=== PATIENT | female | born 1950 | race American Indian/Alaskan Native ===

== ENCOUNTER 2017-01-14 17:51 | Emergency (ER) | payer MEDICARE, OTHER ==
[~2017-01-14] VITALS: Ht 154.9 cm; Wt 115.7 kg
[~2017-01-14 17:51] MED LIST: ARMOUR THYROID240 MG PO; FISH OIL 1,0001 EAC5 PO; LISINOPRIL20 MG PO; MEDROL4 M1 PO; TOPROL XL25 MG PO; TRIAMCINOLONE A15 G1; [UNRECOGNIZED DRUG - OTHER] TP
[2017-01-14] MEDS ORDERED: ZOFRAN ODT4 MG PO (21:08)
[2017-01-14] MEDS ORDERED: KEFLEX500 MG PO (21:08)
== END 2017-01-14 22:12 | disposition home or self-care (01) ==
LOC: ED 17:51
DX: K80.20 Calculus of gallbladder without cholecystitis without obstruction (principal); N39.0 Urinary tract infection, site not specified; I10 Essential (primary) hypertension; E11.9 Type 2 diabetes mellitus without complications; E03.9 Hypothyroidism, unspecified; F17.200 Nicotine dependence, unspecified, uncomplicated; K76.0 Fatty (change of) liver, not elsewhere classified
CPT/HCPCS: 76705; 80053; 81001; 83690; 85025; 96361; 96374; 96375; 96376; 99284; J0696; J1170; J2405; J2550; J7030

== ENCOUNTER 2018-02-25 10:55 | Emergency (ER) | payer MEDICARE, OTHER ==
[~2018-02-25] VITALS: Ht 154.9 cm; Wt 115.7 kg
--- OUTSIDE RECORDS SUMMARY | ~2018-02-25 | XMS | Clinical Summary ---
Demographics + + + | Address | [address] | | | [place] [address] | + + + | Home Phone | | + + + | Preferred Language | Unknown | + + + | Marital Status | Single | + + + | Gnosticist Affiliation | CAT | + + + | Race | or | + + + | Ethnic Group | Not or | + + + Author + + + | Author | [facility] | + + + | Organization | [facility] | + + + | Address | Unknown | + + + | Phone | Unavailable | + + + Support + + +---------+ + | Name | Relationship | Address | Phone | + + +---------+ + | Brittney Miller | ECON | Unknown | | + + +---------+ + | Mohini Penn | ECON | Unknown | | + + +---------+ + | SCAR MILLER | ECON | Unknown | | + + +---------+ + | Daniel Miller | ECON | Unknown | | + + +---------+ + Care Team Providers + +------+ + | Care Cardiographer Name | Role | Phone | + +------+ + | No Pcp Per Patient | PP | Unavailable | + +------+ + Source Comments [facility] is fully live on both [facility] and [facility]Patient.[facility] Allergies No Known Allergies Current Medications + + +---------+---------+------+------+-------+ | Prescription | Sig. | Disp. | Refills | Star | End | Statu | | | | | | t | Date | s | | | | | | Date | | | + + +---------+---------+------+------+-------+ | levothyroxine 75 | Take 75 mcg by mouth | | | | | Activ | | mcg oral tablet | before breakfast. | | | | | e | + + +---------+---------+------+------+-------+ | glipiZIDE ER 10 mg | Take 10 mg by mouth | | | | | Activ | | oral tablet | once daily. | | | | | e | | extended release | | | | | | | | 24hr | | | | | | | + + +---------+---------+------+------+-------+ | acetaminophen 500 | Take 2 tablets by | | | 06/0 | | Activ | | mg oral tablet | mouth every eight | | | 7/20 | | e | | | hours. | | | 17 | | | + + +---------+---------+------+------+-------+ | lidocaine 5 % | Apply 1 patch to | 10 | 1 | 06/0 | | Activ | | topical adhesive | skin every | patch | | 12/22 | | e | | patch,medicated | twenty-four hours. | | | 17 | | | | | Apply patch to most | | | | | | | | painful area; Patch | | | | | | | | may remain in place | | | | | | | | for up to 12 hours | | | | | | | | in any 24-hour | | | | | | | | period. | | | | | | + + +---------+---------+------+------+-------+ | senna 8.6 mg oral | Take 2 tablets by | | | 06/0 | | Activ | | tablet | mouth two times | | | 7/20 | | e | | | daily. | | | 17 | | | + + +---------+---------+------+------+-------+ | polyethylene | Mix 1 packet and | | | 06/0 | | Activ | | glycol 17 gram oral | take orally once | | | 8/20 | | e | | powder in packet | daily. | | | 17 | | | + + +---------+---------+------+------+-------+ | cholecalciferol | Take 1 capsule by | 7 | 0 | 06/0 | | Activ | | 50,000 unit oral | mouth every seven | capsule | | 8/20 | | e | | capsule | days. | | | 17 | | | + + +---------+---------+------+------+-------+ | oxyCODONE | Take 1-2 tablets by | 40 | 0 | 07/1 | | Activ | | (immediate release) | mouth every eight | tablet | | 2/20 | | e | | 5 mg oral tablet | hours as needed for | | | 17 | | | | | moderate pain or | | | | | | | | severe pain. 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 | | + + + Social History + +-------+ +--------+------+ | Tobacco Use | Types | Packs/Day | Years | Date | | | | | Used | | + +-------+ +--------+------+ | Current Some Day | | | | | | Smoker | | | | | + +-------+ +--------+------+ + + + | Sex Assigned at | Date Recorded | | | | + + + | Not on file | | + + + Last Filed Vital Signs + + + + | Vital Sign | Reading | Time Taken | + + + + | Blood Pressure | 151/52 | 12/14/2016 1:31 PM PDT | + + + + | Pulse | 86 | 12/14/2016 1:31 PM PDT | + + + + | Temperature | 36.8 C (98.3 F) | 12/14/2016 1:31 PM PDT | + + + + | Respiratory Rate | 16 | 11/10/2016 8:04 AM PDT | + + + + | Oxygen Saturation | 97% | 11/10/2016 12:01 PM PDT | + + + + | Inhaled Oxygen | - | - | | Concentration | | | + + + + | Weight | 112 kg (246 lb 14.4 | 12/14/2016 1:31 PM PDT | | | oz) | | + + + + | Height | 154.9 cm (5' 1") | 12/14/2016 1:31 PM PDT | + + + + | Body Mass Index | 46.65 | 12/14/2016 1:31 PM PDT | + + + + Plan of Treatment + + + + + | Health Maintenance | Due Date | Last Done | Comments | + + + + + | Pneumococcal (Adult) | | | | | (1 of 2 - PCV13) | 4 | | | + + + + + | INFLUENZA VACCINE | | | | | (FLU SHOT) | 8 | | | + + + + + Results Not on filefrom Last 3 Months Insurance + +--------+ +--------+ + + | Payer | Benefi | Subscriber | Type | Phone | Address | | | t Plan | ID | | | | | | / | | | | | | | Group | | | | | + +--------+ +--------+ + + | MEDICARE | MEDICA | xxxxxxxxxx | Medica | +- | [address] | | | RE A & | | re | [phone] | [place] [address] | | | B | | | | | + +--------+ +--------+ + + | | TRICAR | xxxxxxxxx | Indemn | +- | | | | E 4 | | ity | [phone] | | | | LIFE | | | | | + +--------+ +--------+ + + | [place] | MCAID | xxxxxxxx | Medica | [phone] [address] [phone] | | | QMM | | id | [phone] | [place] [address] | | | QMB | | | | | + +--------+ +--------+ + + | [employer] [place] [facility] | [employer] | xxxxxxxxx | Agency | | | | SERVICE | | | | | | | | HEALTH | | | | | | | | | | | | | | SERVIC | | | | | | | E | | | | | + +--------+ +--------+ + + + +--------+ +--------+ + + | Guarantor Name | Accoun | Relation to | Date | Phone | Billing Address | | | t Type | Patient | of | | | | | | | | | | + +--------+ +--------+ + + | ALFREDO BUTLER | Person | Self [birth year] | Home: | [address] | | | al/Fam | | 1950 | +- | [place] [address] | | | [place]izett | | | [phone] | | + +--------+ +--------+ + + | ALFREDO BUTLER | Third | Self | [birth year] | Home: | [address] | | | [employer] [place] | | 1950 | +- | [place] [address] | | | [place] | | | 0 | | | | ity | | | | | + +--------+ +--------+ + +
--- OUTSIDE RECORDS SUMMARY | ~2018-02-25 | XMS | Clinical Summary ---
Demographics + + + | Address | [address] | | | [place] [address] | + + + | Home Phone | | + + + | Preferred Language | Unknown | + + + | Marital Status | Single | + + + | Islam Affiliation | CAT | + + + [...] Team Providers + +------+ + | Care Senior Java Software Engineer Name | Role | Phone | + +------+ + | No Pcp Per Patient | PP | Unavailable | + +------+ + Source Comments [facility] is fully live on both [facility] Amb[facility] and [facility] InPatient.[facility] Allergies No Known Allergies Current Medications + [...] | re | [phone] | [place] [address] | | | B | | | | | + +--------+ +--------+ + + | | TRICAR | xxxxxxxxx | Indemn | +- | | | | E 4 | | ity | [phone] | | | | LIFE | | | | | + +--------+ +--------+ + + | [place] | MCAID | xxxxxxxx | Medica | [phone] [address] [phone] | | | QMM | | id | [phone] | [place] [address] | | | QMB | | | | | + +--------+ +--------+ + + | [employer] [facility] | [place] | xxxxxxxxx | Agency | | | [...] | 1950 | +- | [place] [address] | | | [place] | | | [address] | | + +--------+ +--------+ + + | ALFREDO BUTLER | Third | Self | [birth year] | Home: | [address] | | | Libertarian | | 1950 | +- | [place] [address] | | | [place] | | | 0 | | | | ity | | | | | + +--------+ +--------+ + +
[~2018-02-25 10:55] MED LIST changes: +KEFLEX500 MG PO; +ZOFRAN ODT4 MG PO
== END 2018-02-25 11:17 | disposition home or self-care (01) ==
LOC: ED 10:55
DX: Z00.8 Encounter for other general examination (principal)

== ENCOUNTER 2018-03-02 07:25 | Inpatient (IN) | payer MEDICARE, OTHER ==
[~2018-03-02] VITALS: Ht 154.9 cm; Wt 93.0 kg
--- OUTSIDE RECORDS SUMMARY | ~2018-03-02 | XMS | Clinical Summary ---
Demographics + + + | Address | [address] | | | [place] [address] | + + + | Home Phone | | + + + | Preferred Language | Unknown | + + + | Marital Status | Single | + + + | Anabaptism Affiliation | CAT | + + + [...] Team Providers + +------+ + | Care Assistant Office Manager Name | Role | Phone | + +------+ + | No Pcp Per Patient | PP | Unavailable | + +------+ + Source Comments [facility] is fully live on both [facility] and [facility] InPatient.[facility] Allergies No Known Allergies Current Medications + [...] | re | [address] | [place] [address] | | | B | | | | | + +--------+ +--------+ + + | | TRICAR | xxxxxxxxx | Indemn | +- | | | | E 4 | | ity | [phone] | | | | LIFE | | | | | + +--------+ +--------+ + + | [employer] | MCAID | xxxxxxxx | Medica | [phone] | [address] [phone] | | | QMM | | id | [phone] | [place] [address] | | | QMB | | | | | + +--------+ +--------+ + + | [employer] | [employer] | xxxxxxxxx | Agency | | | [...] | 1950 | +- | [place] [address] | | | [place] | | | [address] | | + +--------+ +--------+ + + | ALFREDO BUTLER | Third | Self | [birth year] | Home: | [address] | | | Libertarian | | 1950 | +- | [place] [address] | | | [place] | | | 0 | | | | ity | | | | | + +--------+ +--------+ + +
--- NOTE | 2018-03-02 10:41 | NUR ---
03/02/18 1041 Imelda Pimentel 1027- PT TO PACU ALERT AND ORIENTED REPORTS NO PAIN OR NAUSEA. EDUCATED PT TO NOTIFY THIS RN IF SHE BECOMES PAINFUL. PT STATES UNDERSTANDING. 1030- BS TAKEN BY KT MONTELONGO. BS 374. 1032- PT DRINKING WATER PER REQUEST. TOLERATING WELL.
--- NOTE | 2018-03-02 11:15 | NUR ---
PATIENT TO ROOM FROM PACU. VITALS TAKEN. PATIENT ABLE TO MOVE SELF OVER TO BED. PATIENT CURRENTLY RATES PAIN 0/10. BLOCK IN PLACE. REPORT GIVEN FROM MONICA PROPERTY DISPOSAL OFFICER. ORDERED LUNCH. BS TAKEN. FAMILY AT BEDSIDE.
--- NOTE | 2018-03-02 13:23 | NUR ---
PT RESTING COMFORTABLY IN BED, RESPIRATIONS EVEN AND UNLABORED, NO ACUTE DISTRESS NOTED. NO ACUTE CHANGES.
--- NOTE | 2018-03-02 13:38 | OR ---
[facility] [address] [place], [place] [address] Signed DATE OF OPERATION: 03/02/2018 SURGEON: Jeanna Simpson MD HISTORY OF PRESENT ILLNESS: Makenzie is a 68-year-old obese diabetic female, who had presented with a month of right perianal pain with swelling and erythema, and eventually some drainage. She had initially gone to the [facility] and had an incision and drainage performed and was given clindamycin 300 mg p.o. t.i.d.; unfortunately, she only took it once a day. In the meantime, she followed up with her primary care provider. Apparently things were no better. Her primary care provider had called my office and we had seen her urgently yesterday evening. Makenzie told me that she is noncompliant and has not taken any medications in over a year including her diabetic medication and her thyroid medication, cholesterol and high blood pressure medication. On exam in the office, she had a large abscess on the right gluteus over the area of the ischium and it was every bit a 10 cm in diameter. The overlying skin was breaking down and she was having some pus come through. I explained to Makenzie we would take her to the operating room the following morning and we are going to keep her in the hospital at least a few days to get some of her medical issues ironed out and her blood sugars under better control, and we would use a full strength Dakin's packing in the wound to help kill the bacteria locally along with her IV antibiotics. Once we felt she was on an improved course, we would discharge her to home, hopefully just a few days. She understands that wound is going to be left open, it will heal in secondarily over a month or two. She understands the nature of the surgery along with its risks including, but not limited to bleeding, infection, scarring, change in contour of the skin, and recurrent abscesses in the same or other locations. She had expressed understanding and wished to proceed. PROCEDURE NOTE: I met with Makenzie in our preop area. After this, our nurse contact clerk gave her a saddle block. She was taken in the operating room and placed in the prone jackknife position with appropriate padding and monitoring. She was given Versed IV just for comfort during the procedure. She was given her preoperative antibiotics and later given the subcutaneous heparin. SCDs were utilized. She was prepped and draped in the usual sterile fashion. We did a digital rectal exam and I cannot associate the abscess with the anal canal. It looks like this is over the ischium and therefore, it is a gluteal abscess. We simply opened the skin over about 2 cm and evacuated the pus in the loose areolar tissue, surrounding that was healthier adipose tissue. The abscess had headed inferiorly towards the inner thigh in laterally and just a little bit very short, maybe 1 cm or so toward the anus and stopped. All those areas were opened. All the tissue was cleaned out sharply and with the Peon clamps. The wound was then Electronically Signed By: JEANNA SIMPSON MD 03/02/18 1338 PATIENT NAME: MAKENZIE WILBURN OPERATIVE REPORT DATE OF : 48 REPORT #: [id number] PHYSICIAN: JEANNA SIMPSON MD PCP: IAIN ARGUELLO REPORT IS CONFIDENTIAL AND NOT TO BE RELEASED WITHOUT AUTHORIZATION [address] [address] Signed copiously irrigated and suctioned out until clear. Cultures had already been taken in the emergency room and we will track those down. We injected local anesthetic in the wound and underneath the skin, and we packed the wound with full strength Dakin-soaked 4-inch Kerlix gauze roll. A dry ABD was placed over this along with underwear. No tape was applied to that skin. She was then rotated into the supine position onto her hospital bed and taken into recovery room in stable condition. Makenzie tolerated the procedure quite well. Jeanna Simpson MD ALB/MODL /[id number] cc: Imelda Bond Copies: IMELDA BOND ~ Electronically Signed By: JEANNA SIMPSON MD 03/02/18 1338 PATIENT NAME: MAKENZIE WILBURN OPERATIVE REPORT DATE OF : 48 REPORT #: [id number] PHYSICIAN: JEANNA SIMPSON MD PCP: IAIN ARGUELLO REPORT IS CONFIDENTIAL AND NOT TO BE RELEASED WITHOUT AUTHORIZATION
--- NOTE | 2018-03-02 13:57 | NUR ---
PATIENT RESTING IN BED. RN IN ROOM. VITALS AND I&O DONE. ICE WATER GIVEN. CALL LIGHT WITHIN REACH. NO OTHER NEEDS AT THIS TIME.
--- NOTE | 2018-03-02 13:57 | NUR ---
PT SBA TO BSC, STEADY GAIT, NO DIZZINESS. PT ASSISTED BACK TO BED AND ASSESSED FOR PAIN, POSITIONING, AND POSSIBLE DRESSING CHANGE. PT STATES SHE HAS PAIN 6/10 TO RLE, 5/325MG HYDROCODONE GIVEN. DRESSING CHANGES TO BE COMPLETED. PT REMAINS ON LEFT SIDE UNTIL DRESSING CHANGE COMPLETED.
--- NOTE | 2018-03-02 14:00 | NUR ---
PT ASSISTED TO LEFT LATERAL POSITION, ASSESSED FOR COMFORT AND PAIN, 1MG DILAUDID GIVEN PRIOR TO DRESSING CHANGE FOR 6/10 PAIN. MODERATE AMOUNT OF SEROSANGUINOUS DRAINAGE NOTED ON DRESSING. SITE CLEANSED WITH SOAP AND WATER. KERLIX GAUZE ROLL SOAKED IN DAKINS SOLUTION PACKED INTO WOUND SITE. BACTROBAN OINTMENT APPILED TO SURROUNDING AREA. ABD APPLIED. MESH UNDERWEAR IN PLACE. PT TOLERATED WELL. ASSESSED FOR PAIN AND POSITIONING. DENIES OTHER NEEDS. CALL LIGHT WITHIN REACH.
--- NOTE | 2018-03-02 15:56 | NUR ---
PT CONTINUES TO HAVE MILD NAUSEA AFTER 4MG ZOFRAN, ADDITIONAL 4MG ZOFRAN GIVEN FOR TOTAL DOSE OF 8MG. PT REPORTS IMPROVEMENT OF SYMPTOMS. WILL CONTINUE TO MONITOR. DENIES OTHER NEEDS. CALL LIGHT WITHIN REACH .
--- NOTE | 2018-03-02 16:50 | NUR ---
CALL LIGHT ANSWERED. PT REPORTS INCREASED NAUSEA, 100ML EMESIS NOTED. 12.5MG PHENAGREN GIVEN. CONTINUOUS PULSE OX IN PLACE, 95% ON RA. VITAL SIGNS OBTAINED AND WNL. WILL CONTINUE TO MONTIOR.
--- NOTE | 2018-03-02 17:30 | NUR ---
PT RESTING COMFORTABLY IN BED, RESPIRATIONS EVEN AND UNLABORED, OXYGEN SATURATION 94% ON RA. NO ACUTE DISTRESS NOTED.
--- NOTE | 2018-03-02 18:22 | NUR ---
PT HAD I&D OF RIGHT GLUTEAL ABCESS TODAY. OVERALL PAIN HAS BEEN WELL MANAGED, SINGLE DOSE OF 5/325MG HYDROCODONE GIVEN, 1MG DILAUDID GIVEN PRIOR TO DRESSING CHANGE. DRESSING CHANGED PERFORMED, SITE PACKED WITH KERLIX SOAKED DAKINS, BACTROBAN APPLIED AROUND SITE, ABD PAD PLACED, MESH UNDERWEAR, PT TOLERATED WELL. INCREASED NAUSEA WITH EMESIS, 8 MG ZOFRAN AND 12.5 PHENAGREN GIVEN. PT SBA TO BSC, VOIDING QS, PT DUE TO HAVE BM. SCHEDULED CEFEPIME AND FLAGYL.
--- NOTE | 2018-03-02 20:00 | NUR ---
RECEIVED REPORT AT 1900, FOUND PT IN BED SLEEPING. NO NEW CONCERNS AT THIS TIME.
--- NOTE | 2018-03-02 21:25 | NUR ---
VITALS AND I&OS DONE AND CHARTED. HELPED PT TO THE BSC AND BACK TO BED. FRESH ICE WATER GIVEN. HEATED UP HER DINNER AGAIN. SCD'S PLUGGED BACK IN. PT WILL CALL IF SHE NEEDS ANYTHING ELSE.
--- NOTE | 2018-03-02 21:37 | NUR ---
charge nurse rounding note: Resting eyes closed, call lihgt and fluids at bedside
--- NOTE | 2018-03-02 22:00 | NUR ---
V/S ARE WDL. LOBES ARE CLEAR. ABD SOUNDS ARE PRESENT. DRESSING CHANGE TO BED DONE IN A BIT DUE TO FAMILY IN THE ROOM. BS WAS 298, MEDS GIVEN. PT SO FAR DENIES N/V BUT NEEDED SOME PRN DILAUDED FOR PAIN. WILL CONTINUE TO MONITOR.
--- NOTE | 2018-03-03 | NUR ---
PT IS SLEEPING BUT WILL WAKE HER UP FOR DRESSING CHANGE.
--- NOTE | 2018-03-03 00:53 | NUR ---
DRESSING CHANGE DONE AT 0030. 1MG IV DILAUDED GIVEN PRIOR TO DRESSING CHANGE. PT HAD ALSO NAUSEA, 8MG IV ZOFRAN WAS GIVEN WELL. NO NEW CONCERNS AT THIS TIME.
--- NOTE | 2018-03-03 02:05 | NUR ---
PT IS AWAKE IN BED. PT STILL HAS NAUSEA, PHENERGAN TO BE GIVEN PER ORDER. PAIN NOW IS 3/10. WILL CONTINUE TO MONITOR.
--- NOTE | 2018-03-03 04:00 | NUR ---
PT IS SLEEPING AT THIS TIME.
--- NOTE | 2018-03-03 05:27 | NUR ---
PAIN OVERALL HAS BEEN CONTROLLED WITH PRN DILAUDED. NAUSEA HAS REMAINED AN ISSUE THIS SHIFT. ZOFRAN DID NOT HELP AND THEREFORE PHENERGAN WAS GIVEN. PT IS ABLE TO TOLERATE CLEARS SO FAR. DRESSING CHANGE WAS DONE. ALL LOBES ARE CLEAR, ABD SOUNDS ARE PRESENT. WILL CONTINUE TO MONITOR.
--- NOTE | 2018-03-03 07:20 | NUR ---
REPORT RC'D FROM PARTITION MAKING MACHINE OPERATOR NURSE ALLIE. REPORTS PAIN WELL MANAGED, NO NAUSEA OR EMESIS, DRESSING CHANGE COMPLETED. PT RESTING IN BED WITH EYES CLOSED, RESPIRATIONS EVEN AND UNLABORED, NO ACUTE DISTRESS NOTED.
--- NOTE | 2018-03-03 08:17 | NUR ---
patient in bed, blood sugar already taken, breakfast brought in
--- NOTE | 2018-03-03 09:30 | NUR ---
PT RESTING IN BED, EASILY AWAKENED TO VERBAL STIMULI. PT A&O X3, VERBALIZATIONS CLEARS, RESPONDS APPROPRIATELY, PERRLA. RHYTHM REGULAR, R D ENGINEER LESS THAN 3 SECONDS, TRACE EDEMA NOTED TO BLE, SCD IN PLACE, DENIES N/T. RESPIRATIONS EVEN AND UNLABORED, LUNGS CLEAR THROUGHOUT ALL DOWNING BILATERALLY, NO COUGH. ABD SOFT NON TENDER, DUE FOR BM, TOLERATING ADA DIET, DENIES N/V, BOWEL TONES ACTIVE X4. VOIDING QS. INTEGUMENTARY WARM, DRY, AND INTACT. LR INFUSING AT 75 ML/HR, SCHEDULED ABX. DR. SIMPSON AT BEDSIDE TO ASSESS PT. PACKING REMOVED. PT TO HAVE SHOWER AND DRESSING CHANGE TO BE COMPETED. DR. SIMPSON REPORTS WOUND CARE EDUCATION TO BE PROVIDED TO REPROGRAPHICS TECHNICIAN.
--- NOTE | 2018-03-03 10:30 | NUR ---
PT BACK TO BED AFTER SHOWER, TOLERATED WELL. PT GIVEN 5/325MG HYDROCODONE PRIOR TO DRESSING CHANGE. SMALL AMOUNT OF SEROSANGENUOUS DRAINAGE NOTED, REDNESS AROUND I&D SITE AND RECTUM, NO WARMTH NOTED. KIRLEX SOAKED IN DAKINS PACKED INTO SITE, BACTROBAN APPLIED TO SURROUNDING AREA, ABD PLACED, MESH UNDERWEAR APPLIED, PT TOLERATED WELL. ASSESSED FOR POSITIONING AND PAIN. PAIN 2/10, DENIES NEED FOR PRN PAIN MEDICATION. CALL LIGHT WITHIN REACH. FLAGYL AND CEFEPIME RESTARTED AT THIS TIME.
--- NOTE | 2018-03-03 11:40 | NUR ---
patient sahowwered, blood sugar taken and lunch delivered
--- NOTE | 2018-03-03 12:00 | NUR ---
PT RESTING COMFORTABLY IN BED WITH EYES CLOSED, RESPIRATIONS EVEN AND UNLABORED, NO ACUTE DISTRESS NOTED. NO ACUTE CHANGES.
--- NOTE | 2018-03-03 13:30 | NUR ---
PT RESTING COMFORTABLY IN BED. PT ASSITED TO REPOSITION AT THIS TIME. DRESSING C/D/I. PT REQUESTING PRN PAIN MEDICATION, 5/325MG NORCO GIVEN. DENIES OTHER NEEDS AT THIS TIME.
--- NOTE | 2018-03-03 15:00 | NUR ---
PT ASSISTED BACK TO BED FROM RESTROOM WITH FWW, NEW ABD PAD AND MESH UNDERWEAR APPLIED. PT'S DAUGHTER AT BEDSIDE. DISCUSSED DAUGHTER'S WILLINGNESS TO ASSIST WITH WOUND CARE, PT'S DAUGHTER STATES SHE IS STARTING A NEW JOB AND WILL BE TRAVELING OUT OF TOWN FOR TRAINING. PT'S DAUGHTER STATES SHE DOES NOT BELEIVE ANY FAMILY MEMBERS WILL BE ABLE TO PERFORM WOUND CARE. THIS RN THEN DISCUSSED POSSIBLE REFERRAL TO [facility] FOR WOUND CARE MANAGMENT AND MEDICATION DELIVERY WITH [facility] NURSE. PT AND PT'S DAUGHTER AGREEABLE TO REFERRAL. WILL DISCUSS WITH DR. SIMPSON.
--- NOTE | 2018-03-03 16:30 | NUR ---
PT AMBULATED HALLWAY WITH FWW, GAIT STEADY, TOLERATED WELL. PT ASSISTED BACK TO BED. PT REQUESTING PRN ZOFRAN FOR INCREASED NAUSEA, 8MG ZOFRAN GIVEN. PT REQUESTING TO REST AT THIS TIME. CALL LIGHT WITHIN REACH.
--- NOTE | 2018-03-03 18:27 | NUR ---
pateint in bed, she is resting,needed no other assistance at this time
--- NOTE | 2018-03-03 18:27 | NUR ---
PT'S PAIN WELL MANAGED THROUGHOUT DAY. NO NAUSEA REPORTED UNTIL THIS EVENING, 8MG ZOFRAN GIVEN. PER DR. SIMPSON, EDUCATION ON WOUND CARE TO BE GIVEN TO PT'S FAMILY MEMBER/GROUND SCHOOL INSTRUCTOR. DISCUSSED WOUND CARE WITH FAMILY MEMBER, FAMILY MEMBER NOT WILLING TO PERFORM WOUND CARE. DISCUSSED POSSIBLE REFERRAL TO [facility] NURSES TO PERFORM WOUND CARE AND MEDICATION DELIVERY, PT AGREEABLE TO REFERRAL. PT AMBULATED HALLWAY TODAY, SBA WITH FWW, TOELRATED WELL, CONTINUE TO ENCOURGE. DRESSING CHANGE BID. PT HAD BM X2. SCHEDULED CEFEPIME AND FLAGYL CONTINUES.
--- NOTE | 2018-03-03 20:15 | NUR ---
PT RESTING IN BED, ASSESSMENT COMPLETED, DRESSING CHANGED PER ORDER. CALL LIGHT AND H20 IN REACH. NORCO 5/325 MG X2 TABS WAS ADMINISTERED PER PT REPORT OF 4/10 PAIN PRIOR TO DSG CHANGE. BED ALARM ON NAD NO FURHTER CONCERNS OR REQUESTS VOICED.
--- NOTE | 2018-03-03 20:49 | NUR ---
pt resting in bed safely. pt has no needs at this time. call light within reach.
--- NOTE | 2018-03-03 22:18 | NUR ---
PT RESTING ON LEFT LATERAL SIDE IN BED, PT ASSISTED TO RESTROOM PER HER REQUEST. IV ABX INFUSING. PT DENIES PAIN CALL LIGHT AND H20 IN REACH.
--- NOTE | 2018-03-03 22:40 | NUR ---
charge nurse rounding note: dressing change to perianal area done by primary rn. pt turns self in bed, no requests, call light and fluids at requests
--- NOTE | 2018-03-04 00:24 | NUR ---
PT RESTING SUPINE IN BED, RESPIRATIONS ARE EVEN AND UNLABORED. EYES CLOSED AND PT APPEARS TO BE SLEEPING COMFORTABLY. CALL LIGHT AND H20 IN REACH.
--- NOTE | 2018-03-04 02:55 | NUR ---
PT RESTING SUPINE IN BED, EYES CLOSED AND RESPIRATIONS EVEN AND UNLABORED. PT ASSESSMENT COMPLETED. CALL LIGHT AND H20 IN REACH. PT ASSISTED TO RESTROOM WITH 1PA. IV ABX NFUSING. PT ASSISTED BACK TO BED AND NO FURHTER CONCERNS OR REQUESTS VOICED.
--- NOTE | 2018-03-04 06:45 | NUR ---
Pt up to brp, voided. Requested to go for a walk, walked down towards ICU and up towards 120 and back to room, tolerated well, back to bed, required one person assist and fww.
--- NOTE | 2018-03-04 07:06 | NUR ---
PT APPEARED TO HAVE SLEPT COMFORTABLY THROUGH THE NIGHT. PT A/O X4, ON ROOM AIR. PT TO AMBULATE QID. TOLORATED AMBULATING THIS MORNING WELL. DSG CHANGE ORDERED TO COCCYX BID. PT DID NOT REPORT ANY NAUSEA THROUGH THE NIGHT AND PAIN WAS WELL MANAGED WITH PO NORCO. PT NEEDS ORDER FOR WOUND CARE AND PLANS TO RECEIVE WOUND CARE THROUGH [facility] NURSE UPON DISCHARGE. PT RECEIVEING IV ABX. PT'S VS'S HAVE BEEN STABLE, QS URINE OUTPUT.
--- NOTE | 2018-03-04 07:20 | NUR ---
REPORT RC'D FROM ANTIQUE FURNITURE RESTORER NURSE NESTOR. PT RESTING IN BED WITH EYES CLOSED, RESPIRATIONS EVEN AND UNLABORED, NO ACUTE DISTRESS NOTED.
--- NOTE | 2018-03-04 07:44 | NUR ---
pateint in bed, blood sugar already done, breakfast brought in, she wasnt ready to wake up yet, she is currently resting for a bit
--- NOTE | 2018-03-04 09:00 | NUR ---
FULL ASSESSMENT TO BE COMPLETED, SEE DOCUMENTATION. PT RESTING IN BED AT THIS TIME. PRN NORCO TO BE GIVEN PRIOR TO DRESSING CHANGE. DR. SIMPSON AT BEDSIDE ASSESSING PT AND UPDATING PLAN OF CARE.
--- NOTE | 2018-03-04 10:00 | NUR ---
DRESSING CHANGE COMPLETED. SMALL AMOUNT OF SERSANGENOUS DRAINAGE NOTED, REDNESS IMPROVING AROUND WOUND SITE, NO WARMTH NOTED, SITE PACKED WITH DAKIN SOAKED KERLIX, BACTROBAN APPILED TO SURROUNDING AREA, ABD PAD AND MESH UNDERWEAR IN PLACE, PT TOLERATED WELL. PT STATES INCREASED SENSE OF SENSATION TO AREA. PT HAVE TO HAVE WOUND CONSULT WITH [facility] FOR HOME MANAGEMENT, CONSULT CREATED. DENIES OTHER NEEDS. PT TO AMBULATE LATER THIS AFTERNOON.
--- NOTE | 2018-03-04 10:29 | NUR ---
PT RESTING IN BED AT THIS TIME REQUESTING SF VIJAYO PROVIDED. PT STATES PAIN IMPROVING AFTER DRESSING CHANGE AND ICE APPLICATION. WILL CONTINUE TO MONITOR. DENIES OTHER NEEDS AT THIS TIME. CALL LIGHT WITHIN REACH.
--- NOTE | 2018-03-04 12:00 | NUR ---
PT BACK IN BED AFTER AMBULATING HALLWAY WITH FWW. PT REPORTS MILD CRAMPING IN FEET THAT IMPROVES WITH REST. DENIES OTHER NEEDS. CALL LIGHT WITHIN REACH.
--- NOTE | 2018-03-04 13:11 | NUR ---
PT A&O X3 AND RESPONDING APPROPRIATELY. RHYTHM REGULAR, MUFFLER TENDER LESS THAN 3 SECS, PERIPHERAL PULSES +2 IN UPPER AND LOWER BILATERALLY, SCD IN PLACE, DENIES N/T, TRACE EDEMA IN BLE. RESPIRATIONS EVEN AND UNLABORED, LUNGS CLEAR THORUGHOUT ALL DOWNING BILATERALLY, ON RA, NO COUGH. BOWEL TONES ACTIVE X4, BM YESTERDAY, DENIES NAUSEA, TOLERATING ADA DIET. VOIDING QS. DRESSING CHANGE TO BE COMPLETED. IV SITE FLUSHED, PATENT, WNL.
--- NOTE | 2018-03-04 14:00 | NUR ---
PT REPORTS AMBULATING HALLWAY WITH BOOSTER ASSEMBLER, TOELRATED WELL. PT VISITING WITH FAMILY MEMBER. DRESSING ASSESSED, ABD NOTED TO HAVE SMALL AMOUNT OF SEROSANGENUOUS FLUID, ABD REPLACED. DENIES OTHER NEEDS. CALL LIGHT WITH REACH.
--- NOTE | 2018-03-04 14:39 | NUR ---
pateint in room visiting with friend will go back to do vital signs
--- NOTE | 2018-03-04 16:30 | NUR ---
PT RESTING IN BED WITH EYES CLOSED, RESPIRATION EVEN AND UNLABORED. NO ACUTE CHANGES.
--- NOTE | 2018-03-04 18:30 | NUR ---
OVERALL PT HAD A GOOD DAY. CONSULT FOR CASE MANAGMENT AND REFERRAL TO [facility]. PAIN WELL CONTROLLED, NORCO PRIOR TO DRESSING CHANGE. TOLERATING ADA DIET, NO NAUSEA. DRESSING CHANGE BID, COMPLETED. PT DUE TO AMBULATE QID, PT SBA WITH FWW IN HALLWAY X2, GAIT STEADY, REPORTS MILD CRAMPING IN FOOT THAT RESOLVES WITH REST. PT SHOWERED THIS AFTERNOON, TOELRATED WELL. SCHEDULED ABX.
--- NOTE | 2018-03-04 19:20 | NUR ---
REPORT RECEIVED FROM DAYSHIFT RN. PT RESTING IN BED WATCHING TV, APPEARS TO BE IN NO DISTRESS AND NO NEEDS VOICED. CALL LIGHT/H20 IN REACH.
--- NOTE | 2018-03-04 20:55 | NUR ---
PT RESTING ON LEFT LATERAL SIDE IN BED, ALERT TO VOICE. PT REPORTS PAIN OF 4/10 SO IV DILAUDID 1MG ADMINISTERED SLOW IVP. DRESSING CHANGED PER P.O. PT STATES PAIN IS NOW TOLERABLE. PT AMBULATES IN ANAND X 1 LAP AROUND NURSING STATIONS. PT REPORTS NAUSEA, PHENERGAN 12.5MG ADMINISTERED. PT SITTING UP IN CHAIR. ASSESSMENT COMPLETED. CALL LIGHT IN REACH. NO FURHTER CONCERSN VOICED.
--- NOTE | 2018-03-04 21:55 | NUR ---
PT RESTING ON LEFT LATERAL SIDE IN BED, STATES SHE IS COMFORTABLE AND THAT NASUEA HAS SUBSIDED. CALL LIGHT AND H20 IN REACH. IV ABX INFUSING. NO FURTHER CONCERNS OR REQUESTS VOICED.
--- NOTE | 2018-03-05 02:00 | NUR ---
pt asssited up to restroom with sba and fww. pt also reported pain, requested and received prn po norco. Assessment completed. call light and h20 in reach. No concerns or requests voiced.
--- NOTE | 2018-03-05 04:09 | NUR ---
pt resting supine in bed, call light in reach, eyes closed and pt appears to be sleeping comfortably. call light/h20 inreach.
--- NOTE | 2018-03-05 05:37 | NUR ---
PT APPEARED TO HAVE SLEPT COMFORTABLY THROUGH MAJORITY OF SHIFT. PT DID EXPERIENCE SOME BREAKTHROUGH PAIN REQUIRING 1MG IV DILAUDID, PT ALSO EXPERIENCED SOME NAUSEA REQUIRING IV PHENERGAN. PT TOLORATED DRESSING CHANGE TO RIGHT GLUTEAL WOUND WELL. PT TOLORATED A LAP AROUND NURSING STATIONS AFTER DRESSIGN CHANGE WAS COMPLETED. PT VOIDED QS URINE OUTPUT AND HER VS'S WERE STABLE. SCHEDULED IV ABX CONTINUE WITH CONTINUOUS NS AT 30ML/HR. CASE MANAGEMENT TO CONTACT [facility] TO POSSIBLY SET UP DRESSING CHANGES AT PT'S HOME.
--- NOTE | 2018-03-05 06:20 | NUR ---
PT RESTING IN BED, REPORTS INCREASED PAIN TO GLUTEAL WOUND. PT REQUESTED AND RECEIVED PRN PO NORCO. PT ASSSITED TO RESTROOM WITH 1PA AND FWW. PT ALSO ASSISTED ON WALK AROUND NURSING STATION. PT BACK IN BED. CALL LIGHT AND H20 IN REACH. PT REPORTS SMALL AMOUNT OF NAUSEA DENIES NEED FOR ZOFRAN, CRACKERS GIVEN PER REQUEST.
--- NOTE | 2018-03-05 08:00 | NUR ---
AWAKE, ASSISTED UP TO CHAIR FOR BREAKFAST. IN GOOD SPIRITS.CALL IGHT IN EASY REACH. SCHEDULED MEDS GIVEN.
--- NOTE | 2018-03-05 10:30 | NUR ---
PT C/O BURNING AT IV SITE, IV RESTARTED INTO R HAND, TOLERATED WELL. IV CANNULA DC'D FROM L WRIST INTACT. LAYING ON BED WATCHING TV. ABX INFUSING, NO FURTHER DISCOMFORT.
--- NOTE | 2018-03-05 11:07 | NUR ---
PATIENT SITTING UP IN BED. FRESHWTAER GIVEN. CALL LIGHT IN REACH. NO FURTHER NEEDS AT THIS TIME.
--- NOTE | 2018-03-05 14:20 | NUR ---
PATIENT UP TO SHOWER CHAIR AND BACK TO CHAIR, SBA. PATIENT INDEPENDENT IN SHOWER. NEW GOWN PROVIDED. LINEN CHANGE. CALL LIGHT IN REACH. NO FURTHER NEEDS AT THIS TIME.
--- NOTE | 2018-03-05 15:54 | NUR ---
WOUND CARE TO R BUTTOCK WITH PACKING INSTRUCTED. PT TOLERATED VERY WELL, HYDROCODONE GIVEN FOR DISCOMFORT. STATES SHE IS GOING TO TAKE A NAP NOW. CALL LIGHT IN EASYR EACH.
--- NOTE | 2018-03-05 17:52 | NUR ---
PT HAS HAD A GOOD DAY, UP FOR SHOWER, DRSG DONE TO R BUTTOCK. PACKING IS NORMAL SALINE BID. TOLERATING WELL. SCHEDULED ABX GIVEN. IN GOOD SPIRITS.
--- NOTE | 2018-03-05 17:55 | NUR ---
PATIENT IN BED WATCHING TV. FRESHWATER GIVEN. CALL IGHT IN REACH. NO FURTHER NEEDS AT THIS TIME.
--- NOTE | 2018-03-05 19:26 | NUR ---
REPORT RECEIVED FROM KT MIRANDA. PT RESTING ON LEFT LATERAL SIDE, EYES CLOSED AND CALL LIGHT/H20 IN REACH. RESPIRATIONS VISABLE AND PT APPEARS TO BESLEEPING COMFORTABLY.
--- NOTE | 2018-03-05 20:10 | NUR ---
PT RESTING IN BED WATCHING TV, REPORTS INCREASED PAIN TO RIGHT GLUTEUS. PT REQUESTED AND RECEIVED PO NORCO FOR PAIN. HS MEDICATIONS ADMINISTERED AND ANTIBIOTICS ARE INFUSING. PT ASSESSMENT COMPLETED. PT ASSISTED UP TO RESTROOM PER REQUEST AND AGREES TO USE CALL STRING WHEN FINISHED. FRESH WATER AT BEDSIDE.
--- NOTE | 2018-03-05 20:45 | NUR ---
HELPED PT BACK TO BED AFTER USING RESTROOM. VS AND I&OS ARE COMPLETE. SHE DENIES FURTHER NEEDS AT THIS TIME.
--- NOTE | 2018-03-05 21:55 | NUR ---
PT RESTING IN BED IN PRONE POSITION, DRESSING CHANGED PER MD ORDER. AFFECTED AREA WAS FIRST CLEANSED WITH WARM SOAPY WATER AND RINSED WITH CLEAN WARM WATER. WOUND THEN PACKED WITH NORMAL SALINE SOAKED KERLIX GUAZE AND DRY GUAZE AND ABDOMINAL PAD PALCED OVER THAT HELD IN PLACE WITH PANTTY LINERS. KT WALTON ASSSISTED WITH DRESSING CHANGE. THERE WAS A MODERATE AMOUNT OF SEROSANGUINOUS DRAINAGE TO OLD DRESSING. CALL LIGHT IN REACH AND PT DENIES FURTHER NEEDS AND STATES SHE IS COMFORTABLE.
--- NOTE | 2018-03-06 00:23 | NUR ---
PT ASSSITED UP TO RESTROOM PER PT REQUEST. PT AMBULATES WITH SLOW BUT STEADY GAIT WITH 1 PERSON SBA AND FWW. PT AGREES TO PULL CALL LIGHT WHEN FINISHED.
--- NOTE | 2018-03-06 00:35 | NUR ---
PT AMBULATES AROUND NURSING STATION WITH A SLOW BUT STEADY GAIT WITH ONE PERSON SBA AND FWW. PT DENIES NEED FOR PAIN MEDICATION AT THIS TIME AND DENIES ANY FURTHER CONCERNS OR REQUESTS. PT RESTING ON LEFT LATERAL SIDE, IV MAINTENANCE FLUIDS INFUSING. CALL LIGHT AND H20 IN REACH.
--- NOTE | 2018-03-06 02:05 | NUR ---
pt resting supine in bed, eyes closed but alert to voice. assessment completed and iv abx infusing. pt denies needs. call light and h20 in reach.
--- NOTE | 2018-03-06 05:27 | NUR ---
PT APPEARED TO SLEEP COMFORTABLY THROUGH MAJORITY OF NIGHT. PT TOLORATED 2 WALKS DURING THE NIGHT. DRESSING WAS NON ODEROUS WITH MODERATE AMOUNT OF SEROSANGUINOUS DRAINAGE NOTED DURING DRESSING CHANGE. DRESSINGS ARE NOW DONE WITH NS SOAKED KERLIX. PAIN WELL CONTROLLED WITH PO OPIODS AND PT REPORTED SLIGHT NAUSEA EARLIER IN SHIFT AND RECEVIED PRN IV ZOFRAN WHICH RESOLVED SYMPTOM. PT CONTINUES ON SCHEDULED IV ANTIBIOTICS. 1 PERSON SBA WITH FWW. VOIDS QS CLEAR YELLOW URINE.
--- NOTE | 2018-03-06 05:54 | NUR ---
pt up to restroom with one person assist and fww. Pt now resting up in chair, pt states pain is tolerable and denies nausea. no needs voiced.
--- NOTE | 2018-03-06 06:49 | NUR ---
PT'S VS AND I&O'S ARE COMPLETE. PT DENIES FURTHER NEEDS.
--- NOTE | 2018-03-06 07:57 | NUR ---
PATIENT UP TO BATHROOM AND BACK TO CHAIR, 1 PERSON ASSIST. PATIENT DID ORAL CARE AND AM CARE AT SINK. LINEN CHANGE. FRESHWATER GIVEN. CALL LIGHT IN REACH. NO FURTHER NEEDS AT THIS TIME.
--- NOTE | 2018-03-06 09:25 | NUR ---
PT IS IN GOOD SPIRITS TODAY, UP EARLY FOR AM CARES, ATE WELL. BACK TO BED WITH WARM BLANKET FOR COMFORT. REMAINS AFEBRILE. REPORTS PAIN IS LESS FROM WOUND SITE NOW. USING CALL LIGHT APPROP.
--- NOTE | 2018-03-06 10:05 | NUR ---
PATIENT SITTING UPIN BED WATCHING TV. FRESH WTAER GIVEN. CALL LIGHT IN REACH. NO FURTHER NEEDS AT THIS TIME.
--- NOTE | 2018-03-06 11:00 | NUR ---
DR SIMPSON IN TO SEE PT, DISCUSSED PT DISCHARGING TO SWING BED TO CONT. WOUND CARE AND ASSESSMENT. PT IN AGREEMENT.
[2018-03-06] MEDS ORDERED: LEVOTHYROXINE75 MCG PO (11:06)
[2018-03-06] MEDS ORDERED: GLIPIZIDE XL10 MG PO (11:07)
[2018-03-06] MEDS ORDERED: MUPIROCIN22 GM TOP (11:07)
[2018-03-06] MEDS ORDERED: HYDROCODON-ACE1 EAC8 PO (11:09)
[2018-03-06] MEDS ORDERED: NYSTATIN15 G2 TOP (11:09)
[2018-03-06] MEDS ORDERED: CLEOCIN HCL300 MG PO (11:10)
--- NOTE | 2018-03-06 11:22 | NUR ---
PATIENT STATES SHE IS NOT TAKING ANY MEDICATION, BUT NEW PRESCRIPTIONS WERE PICKED UP ON 03/01 AND WHEN PROMPTED SHE STATES THAT HER DAUGHTER [facility] AND THAT SHE DID TAKE AN ANTIBIOTIC AND TOPICAL MEDICATIONS.
[2018-03-06] MEDS ORDERED: JANUMET 50-1,01 EACH PO (13:34)
[2018-03-06] MEDS ORDERED: VITAMIN D35000 UNIT PO (13:36)
--- NOTE | 2018-03-07 08:11 | DS ---
[facility] [address], [place] [address] Signed ADMISSION DATE: 03/02/2018 DISCHARGE DATE: 03/06/2018 FINAL DIAGNOSES: 1. Right gluteal abscess. 2. Untreated diabetes. 3. Untreated hypothyroidism. PROCEDURE: Incision and drainage of right gluteal abscess. HISTORY OF PRESENT ILLNESS: Makenzie is a 68-year-old female, who a year ago decided to stop all her medications including her diabetic medications, her thyroid medication, her vitamin B12 and her vitamin D. She said about a month ago, she started having pain and swelling just to the right side of her anus. It has gotten progressively worse to the point she could barely sit down. She had been over to the [facility] on Monday five days prior to me seeing her. She had a 3-4 mm incision and drainage site performed. She was given clindamycin, but failed to understand it was three times a day, not once a day. She had gone to her primary care provider, who asked her to come and see me expeditiously as a general surgeon. I had met with Makenzie in the office. I explained to her this needed surgical drainage in the OR for at least several days if not more in the hospital for ongoing IV antibiotics to get ahead of this infection. HOSPITAL COURSE: Makenzie was brought into the hospital the very next morning on 03/01/2018, and underwent incision and drainage of that right gluteal abscess. She already had cultures done in the emergency room. That eventually grew out community-acquired methicillin-resistant Staph aureus with multiple sensitivities. In the meantime, we kept her in the hospital on cefepime and Flagyl with Dakin solution to pack the wound. Each day it was getting better. We put her back on her chronic medications and we could see that her blood sugars have been as high as 500s, but already down below 100. Her TSH had been high at 8.26, and she is back on her levothyroxine. Her magnesium ran a little low, so she has been on magnesium replacement as well. Fortunately, she has good renal function. She has made excellent progress each and every day. Her pre-albumin came back low at 10.9. She says she does not eat much. We worked with our sr. merchandise planner to continue her dressing changes either at home or through [facility], or through her family. Unfortunately, that did work out. Consequently, we are going to move her to one of our swing beds for ongoing wound care. We stopped the Dakin's after three full days and we switched to saline soaked gauze, and covered that with a dry ABD and her underwear, and she is making marked improvement. We used Bactroban ointment on her skin around the Electronically Signed By: JEANNA SIMPSON MD 03/07/18 0811 PATIENT NAME: MAKENZIE WILBURN DISCHARGE SUMMARY DATE OF : 48 REPORT #: [id number] PHYSICIAN: JEANNA SIMPSON MD PCP: IAIN ARGUELLO REPORT IS CONFIDENTIAL AND NOT TO BE RELEASED WITHOUT AUTHORIZATION [address] [address] Signed area to protect the skin and it has markedly improved as well. Very little induration at this point. The wound is open, it is clean. There is no odor. There is no drainage, and the granulation tissue is starting. She has made excellent progress. She has just a little eschar on one edge of the incision, but it is very narrow, maybe 3 mm. In due time that will come off as well. At this point Makenzie has made enough progress. We can switch her over to our swing bed. I have reviewed this with Makenzie and her family. They have expressed understanding, and agreed to the above plan. DISCHARGE PLANS AND MEDICATIONS: We are going to switch Jennifer over to Levaquin and Flagyl and she will have 10 full days of antibiotics and will stop the cefepime. We will continue all her chronic medications as listed in her history and physical. She will continue her 2000 calorie ADA diet. She can perform activities of daily living including walking up and down stairs, showering, and bathing as usual. She is going to use saline soaked gauze into the wound each day with Bactroban ointment on the skin around the wound. She will shower with soap water directly into the wound. I will see her in about 5-7 days for followup, and we will continue to monitor her wound as it heals over the next 30-60 days. She has developed some diarrhea on her metformin, but I think we will go ahead and send some stool studies just in case, and she will discuss that with the hospitalist as well. She and her family expressed understanding and agreed to above plan. Jeanna Simpson MD ALB/MODL /[id number] cc: MD Iain Wheatley PA Copies: JEANNA SIMPSON MD, KRISTIN H PA ~ Electronically Signed By: JEANNA SIMPSON MD 03/07/18 0811 PATIENT NAME: MAKENZIE WILBURN DISCHARGE SUMMARY DATE OF : 48 REPORT #: [id number] PHYSICIAN: JEANNA SIMPSON MD PCP: IAIN ARGUELLO REPORT IS CONFIDENTIAL AND NOT TO BE RELEASED WITHOUT AUTHORIZATION
== END 2018-03-06 11:50 | disposition swing bed (61) | DRG 603 ==
LOC: DS 07:25 → MS 10:43 → DS 10:43 → MS 03-06 11:50
PROVIDERS: ADMIT Colon & Rectal Surgery
PROC: 0H98XZZ Drainage of Buttock Skin, External Approach (ICD-10-PCS; principal; 2018-03-02 08:45)
DX: L02.31 Cutaneous abscess of buttock (principal); E11.9 Type 2 diabetes mellitus without complications; E03.9 Hypothyroidism, unspecified; B95.62 Methicillin resistant Staphylococcus aureus infection as the cause of diseases classified elsewhere
CPT/HCPCS: 36415; 62322; 80048; 80053; 83735; 84100; 84134; 84443; 85025; J0692; J1170; J1644; J1815; J1956; J2250; J2405; J2550; J3010; J7120

== ENCOUNTER 2021-11-17 11:21 | Inpatient (IN) | payer MEDICARE, OTHER ==
[~2021-11-17] VITALS: Ht 154.9 cm; Wt 94.9 kg
[~2021-11-17 11:21] MED LIST changes: +CLEOCIN HCL300 MG PO; +GLIPIZIDE XL10 MG PO; +HYDROCODON-ACE1 EAC8 PO; +JANUMET 50-1,01 EACH PO; +LEVOTHYROXINE75 MCG PO; +MUPIROCIN22 GM TOP; +NYSTATIN15 G2 TOP; +VITAMIN D35000 UNIT PO
--- NOTE | 2021-11-17 15:45 | NUR ---
REPORT RECEIVED FROM ER AND PT. ARRIVED VIA STRETCHER. PT. ASSISTED FROM STRETCHER TO BSC BY 2 STAFF. SHE BECAME NAUSEOUS WITH MOVEMENT. ASSISTED TO BED. SKIN INTACT. IV WNL AND FLUSHES WELL. H.R. IS 52 BPM. SHE DENIES PAIN AT THIS TIME. NO NEURO DEFICITS NOTED FROM NEURO CHECK. IVF INFUSING. MRI SCREENING COMPLETED. DISCUSSED SAFETY, POC, MEDS. LEFT RESTING WITH CHILDREN AT BEDSIDE AND CALL LIGHT IN REACH.
--- NOTE | 2021-11-17 17:38 | NUR ---
medications reconciled- patient takes no chronic medications
--- NOTE | 2021-11-17 19:48 | NUR ---
pt dry heaving, small amount of clear thick phlegm noted. medicated with zofrn. will do vs and assessmetn ehen n/v subsides al least by 2100, pt agrees, no c/o pain. on room air, IVF infusing w/o problems. tolerating sips of fluids, family at bedside
--- NOTE | 2021-11-17 21:20 | NUR ---
PATIENT ASSISTED TO THE BSC A 1PA TO BSC. PATIENT ABLE TO VOID. PATIENT IS BACK IN BED RESTING. IV INFUINSG PER ORDER. PATIENT DENIES ANY FURTHER NEEDS CALL LIGHT IN REACH. BED ALARM ON FOR SAFETY.
--- NOTE | 2021-11-17 21:40 | NUR ---
in to get vs, pt voided recently with an rn
--- NOTE | 2021-11-17 22:31 | NUR ---
cbg 169, received 1 unit SS insulin. continue sto c/o feeling dizzy and lightheadness. helpful with assessment. IVf infusing RAC,
--- NOTE | 2021-11-17 23:51 | EKG ---
[facility] [address] [place] [address] Signed Sinus bradycardia Nonspecific T wave abnormality Abnormal ECG When compared with ECG of 01-MAR-2018 16:45, fusion complexes are no longer present Nonspecific T wave abnormality now evident in Inferior leads Nonspecific T wave abnormality now evident in Lateral leads Confirmed by NATALIE PEGUERO MD ([id number]) on 11/17/2021 11:51:17 PM Electronically Signed By: NATALIE PEGUERO MD 11/17/21 2351 PATIENT NAME: ALFREDO WILBURN Electrocardiogram DATE OF : 48 PHYSICIAN: NATALIE PEGUERO MD REPORT #: [id number] REPORT IS CONFIDENTIAL AND NOT TO BE RELEASED WITHOUT AUTHORIZATION
--- NOTE | 2021-11-18 01:49 | NUR ---
awakes easily, on room air, no further c/o feeling nauseated. coop with assessment and vitals. tolerating liquids well, fresh fluids and ice chips given. Up to br, tolerated well voided small amounts of yellow urine, back tobed. call light and fluids at bedside
--- NOTE | 2021-11-18 03:51 | NUR ---
TELE#[address], SINUS HUNTER, DROPPED O43BPM, NON CONSISTEN, STAYING MID 50'S, DENIES CP, AWAKES EASILY, NO DISTRESS, CALL LIGHT AT HANDS REACH
--- NOTE | 2021-11-18 04:02 | NUR ---
pt used her cell phone to call the nursing station. c/o being nauseated. Pt in bed, eyes closed, medicated with compazine per c/o n/v. emesis bag on her hands, call light was on pts reach rigth arm. placed over her chest. and withing her hands reach, stated understanding.
--- NOTE | 2021-11-18 06:16 | NUR ---
PATIENTS VITALS TAKEN AND RECORDED. INTAKE AND OUTPUT RECORDED. PATIENT ASSISTED TO BSC A 1PA. PATIENT ABLE TO VOID. PATIENT NAUSEOUS WITH MOVEMENT. PRN NAUSEA MEDICATION GIVEN PER ORDER. PATIENT SL FOR MRI. TELE ON STANDBY FOR MRI. PATIENT OFF FLOOR TO MRI
--- NOTE | 2021-11-18 06:33 | NUR ---
Pt on room air, lungs dim at bases, no cough, has had small amounts of thick phlegs, retching, no emesis, Was medicated with zofran and Inapsine with fair relief. Very unsteady when up to br to void, c/o increaed lightheadness and feeling nauseated. back to bed. 2PA. IVf infusing, tolerating IVF well. tolerating fluids and ice chips well. to DI for MRI a few minutes ago, alert, orineted,
--- NOTE | 2021-11-18 06:57 | NUR ---
pt back from DI at 0640,
--- NOTE | 2021-11-18 07:30 | NUR ---
REPORT RECEIVED FROM NIGHT RN AND PT. CARE RESUMED. PT. IS RESTING WITH CALL LIGHT IN REACH AND DENIES NEEDS AT THIS TIME. NIECE AT BEDSIDE
--- NOTE | 2021-11-18 08:30 | NUR ---
PT. IS ALERT AND ORIENTED TO ALL BUT DATE. SHE REPORTS PAIN IN ABDOMEN AROUND OSTOMY. ABDOMEN IS SOFT BUT BULGING AROUND OSTOMY. BOWEL TONES RARE. NG TUBE ATTACHED TO LOW INT. SUCTION AND DRAINING BROWN LIQUID. OSTOMY APPLIANCES INTACT AND DRY. ATTENDS CHANGED BY CNAS. PT. ASSISTED BY 2 STAFF AND FWW TO WHEELCHAIR FOR XRAY. PT. ABLE TO TAKE A COUPLE STEPS.
--- NOTE | 2021-11-18 09:00 | NUR ---
POWER AND RECOVERY SUPERVISOR BROUGHT BACK PT. DUE TO WEAKNESS SHE WAS UNABLE TO TRANSFER TO TABLE. PT. HOYERED TO BED AND TAKEN BACK TO XRAY. PRIOR TO LEAVING PT. ADMIN PAIN MED AND ATTENDS CHANGED.
--- NOTE | 2021-11-18 11:00 | NUR ---
INTO PATIENT ROOM, PATIENT SLEEPING. PATIENT SON BHARAT AT THE BEDSIDE. BHARAT STATES HE CURRENTLY LIVES IN [place], BUT WOULD PREFER TO BE CONTACTED IF NEEDED . HE STATES HE WOULD LIKE TO ASSIST WITH COMMUNICATION WITH OTHER FAMILY MEMEBER TO MAKE SURE INFORMATION IS CLEARLY UNDERSTOOD. BHARAT STATES THAT THE PATIENT LIVES AT HOME WITH HER DAUGHTER ALEKSANDRA AND HER NEPHEW. BHARAT IS UNABLE TO PROVIDE MUCH INFORMATION REGARDING THE PATIENTS LIVING SITUATION AT THIS TIME, BUT STATES THAT ALEKSANDRA WILL BE IN TO SEE THE PATIENT AT SOMETIME TODAY. IT IS NOTED THAT THE PATIENT DOES HAVE A CANE AT HOME FROM AN ACUTE KNEE INJURY, BUT DOES NOT USE IT AT THIS TIME. BHARAT STATES THERE IS ONLY ON STEP INTO THE HOME. SON ZACKAS THAT PATIENT DOES HAVE A PCP AT PSYCHIATRIC, BUT HAS NOT HAD A VISIT IN AWHILE. PATIENT WOULD LIKE TO WAIT ON DISCUSSING DISCHARGE MATTERS UNTIL ALL TEST RESULTS ARE COMPLETE AND ALEKSANDRA IS PRESENT. CASE MANAGEMENT TO FOLLOW UP WITH PATIENT DURING HER VISIT.
--- NOTE | 2021-11-18 11:50 | NUR ---
PT. HAS HAD LOW URINE OUTPUT AND BLADDER SCANNED. 29ML SHOWN IN BLADDER. MD UPDATED. NO NEW ORDERS.
--- NOTE | 2021-11-18 13:03 | NUR ---
ENTERED PT'S RM-SHE IS IN BED, SON AT BS. PT REQUESTED TO HAVE SERGING MACHINE OPERATOR AUTOMATIC VISIT. WILL INFORM FR MARSH. GAVE BLESSING AND WILL FOLLOW
--- NOTE | 2021-11-18 14:00 | NUR ---
Yury IN THE ROOM TO WORK WITH PT.
--- NOTE | 2021-11-18 18:31 | NUR ---
PT. HAS NOT VOIDED IN 4 HOURS. 1PA TO THE BSC AND VOIDED 350ML. PT. ASSISTED BACK TO BED. DAUGHTER AT BEDSIDE. DENIES FURTHER NEEDS. LEFT RESTING WITH CALL LIGHT IN REACH.
--- NOTE | 2021-11-18 19:30 | NUR ---
IN TO CHANGE PTs TELE FELISHA, NO FURTHER NEEDS AT THIS TIME
--- NOTE | 2021-11-18 20:05 | NUR ---
pt's NIECE JENNIFER GORDON CALLED ASKING FOR pt UPDATE, NIECE NOT ON pt LIST. WHEN ASKED IF NIECE COULD BE GIVEN UPDATE, pt STATES, "NO, TELL HER I SAID THANK YOU AND I'LL CALL HER TOMORROW". UPDATE NOT PROVIDED PER pt's WISHES. AT SAME TIME, pt's SISTER TENZIN MERIDA CALLED AND ASKED FOR pt UPDATE, SISTER IS pt's PERSON TO NOTIFY, UPDATE PROVIDED-OKAYED BY pt. NO FURTHER NEEDS, PRIMARY RN ANJELICA UPDATED WELL.
--- NOTE | 2021-11-18 20:33 | NUR ---
hob elevated, on room air, eyes closed, answers appropriately, c/o lightheadness with movement. medicated w compazine IV. coop with assessment. IVF infusing RAC. lungs clear, aware of need to get up to void, tolerating liquids well, no emesis at thist rody or c/o dryheaving. call ligth at hands reach
--- NOTE | 2021-11-18 23:15 | NUR ---
IN WITH RN TO ASSIST PT UP TO THE BSC, VOIDED, BACK TO BED, NO FURTHER NEEDS AT THIS TIME
--- NOTE | 2021-11-19 01:33 | NUR ---
PT REATING, ON ROOM AIR, EYES CLOSED, NO DISTRESS, IVF INFUSING. CALL LIGHT AND FLUIDS AT BEDSIDE
--- NOTE | 2021-11-19 02:17 | NUR ---
Up to BSC, tolerated much better, minimum of assist at this time. voided qs, back to bed, c/o lightheadness, no c/o reatching, dry heaving or n/v. medicated with zofran 4mg IV. coop with assessment. on room air. IVF infusing w/o problems, denies c/o pain. used call light, tolerating fluids well.
--- NOTE | 2021-11-19 03:45 | NUR ---
IN TO ASSIST PT TO THE BSC, VOID AND BACK TO BED, NO FURTHER NEEDS
--- NOTE | 2021-11-19 05:17 | NUR ---
pt used call light, up to br, 1pa, grabbing on to things, still unsteady gait but much more better than earlier, eyes open, voided large amount of clousy urine, back to be tolerated well, did own am care. c/o lightheadness on return, medicated with zofran 4mg iv, no n/v or dry heaving at this time, tolerating liquids well, lab in room.
--- NOTE | 2021-11-19 05:19 | NUR ---
pt c/o to c/o lightheadness and feeling nauseated with movement, much more improved able to get up to BSC several times and walked to BR x1, tolerated well, eyes open, followed instructions well, no n/v dry heaving or emesis noted, no cough. has been medicated with zofran 2x and compaxine 2x with good to fair n/v relief. working with OT, 1PA needs walker as she grabs onto wall and this rn arms and leans over, instructed, staed she does this at home. fall precautions in place. IVF infusing w/o problems. voiding QS.
--- NOTE | 2021-11-19 07:34 | NUR ---
REPORT RECEIVED FROM NIGHT RN - PT RESTING IN BED ASLEEP WITH RR EVEN AND UNLABORED. CALL LIGHT IN REACH.
--- NOTE | 2021-11-19 08:25 | NUR ---
RN IN ROOM TO ADMINISTER SCHEDULED MEDICATIONS AND ASSESS PT. PT UP TO CHAIR UPON ENTRY. PT ABLE TO TOLERATE SMALL BITES OF BREAKFAST WITHOUT VOMITING. NAUSEA PERSISTANT - MEDICATED WITH PRN ZOFRAN. IV SITE TOLERATING FLUIDS AND ABX WITHOUT DIFFICULTY. PT DENIES PAIN OR DIZZINESS SHE IS SITTING IN CHAIR. PT DENIES FURTHER NEEDS, CALL LIGHT IN REACH.
--- NOTE | 2021-11-19 09:16 | NUR ---
ORDER FOR LUIS ALFREDO, AMBER, H&P AND PT NOTE FAXED TO [facility], [place].
--- NOTE | 2021-11-19 11:05 | NUR ---
PT LAYING IN BED LIGHTS OUT. SHE C/O LIGHT-HEADEDNESS. KT REY INFORMED ME THAT SHE HAD JUST GIVEN PT MEDS FOR VERTIGO.PT WOULD LIKE ALARM TECHNICIAN TO VISIT I WILL INFORM FR ALFORD. HAD PRAYER FOR PT, WILL FOLLOW
--- NOTE | 2021-11-19 11:18 | NUR ---
CALL LIGHT ANSWERED. PT ASSSITED STAND BY OSCAR TO BATHROOM. PT VOIDED 400ML. WAS ABLE TO DO ALL ADL'S INDEPENDENTLY. PT REPROTS SOME DIZZINESS BUT IS STEADY ON HER FEET. PT BRUSHED TEETH THEN BACK TO BED. CALL LIGHT IN REACH. DENIES FURTHER NEEDS.
--- NOTE | 2021-11-19 11:54 | NUR ---
RN IN ROOM TO ROUND ON PT - PT REQUESTS TO SIT UP IN BED AND ATTEMPT SMALL BITES OF LUNCH TRAY. PT DENIES NAUSEA. IV RATE LOWERED TO 75 PER NEW ORDERS. PT DENIES FURTHER NEEDS, CALL LIGHT IN REACH.
--- NOTE | 2021-11-19 12:57 | NUR ---
RN IN ROOM TO ADMINISTER SCHEDULED MEDICATION. PT ON PHONE WITH FAMILY UPON ENTERING. NO NAUSEA OR VOMITING AFTER LUNCH. PT AAO - ASKING APPROPIRATE QUESTIONS REGARDING MEDICATIONS AND ELECTROLYTES. DENIES FURTHER NEEDS, CALL LIGHTIN REACH.
--- NOTE | 2021-11-19 13:24 | NUR ---
RN IN ROOM TO ASSESS IV SITE AFTER WAREHOUSE STOCKER REQUEST. IV SITE FOUND TO BE LEAKING SLOWLY BUT WAS NOT SALVAGABLE. SITE DC'D. NEW IV TO BE PLACED. PT AMBULATED TO BATHROOM WITH FWW AND STANDBY ASSIST. PT VOIDING QS PALE YELLOW URINE. PT BACK TO BED WITH CALL LIGHT IN REACH. NO NAUSEA OR VOMITING NOTED. PT STABLE ON FEET.
--- NOTE | 2021-11-19 16:19 | NUR ---
RN IN ROOM TO ADMINISTER SCHEDULED MEDS - PT RESTING IN BED ON SIDE UPON ENTRY. IV SALINE LOCKED WITH NEW ORDER, TELE DC'D. PT DENIES DIZZINESS OR NAUSEA. DENIES FURTHER NEEDS, CALL LIGHT IN REACH.
--- NOTE | 2021-11-19 19:24 | NUR ---
Pt in bed, eyes closed, no distress, call light and fluids at bedside
--- NOTE | 2021-11-19 21:51 | NUR ---
awakes easily, eyes open, stated that she feels so much better. Up to BR 1PA/FWW. no c/o pain or sob. coop with assessment. SL patent, on room air
--- NOTE | 2021-11-20 00:52 | NUR ---
PT. CALLED NURSES STATION REQUESTING BR. ASSISTANCE. ASSISTED PT. TO BSC. OUTPUT CHARTED EFFICIENTLY. ROOM TIDIED. CALL LIGHT LEFT WITHIN REACH. NO OTHER IMMEDIATE NEEDS AT THIS TIME.
--- NOTE | 2021-11-20 02:55 | NUR ---
used call light, warm blanket and hot tea given on requests. coop with assessment, no c/o dizzines, lightheadness or n/v. watching tv and playing with phone. turns and repositions self
--- NOTE | 2021-11-20 03:49 | NUR ---
PT UTILIZES CALL LIGHT, REQUESTS TO USE THE BATHROOM. PT ASSISTED TO BATHROOM AND BACK TO BED WITH 1PA AND FWW. TOLERATED WELL. PT DENIES FURTHER NEEDS AT THIS TIME. CALL LIGHT IN REACH.
--- NOTE | 2021-11-20 05:48 | NUR ---
Up to br, minimum of assist/fww, voided, back to bed, tolerated very well. tolerating liquids well, no c/o pain.
--- NOTE | 2021-11-20 05:49 | NUR ---
pt has slept well this shift, no further c/o n/v or dry heving. no c/o pain. 1PSBA/FWW when up to br, voiding QS. much improved gait. stated she feel better, med teachaing r/t po thyroid med. stated understanding. tolerating liquids well, SL patent. turns and repositions self. watchign tv and playing with phone. stated looking forward to going home today.
--- NOTE | 2021-11-20 07:07 | NUR ---
report received from night rn - pt resting in bed awake, call light in reach.
--- NOTE | 2021-11-20 09:19 | NUR ---
RN IN ROOM TO ASSESS PT AND ADMINISTER SCHEDULED MEDICATIONS. PT RESTING IN BED UPON ENTRY, DAUGHTER AT BEDSIDE. PT AMBULATES TO BATHROOM WITH STANDBY ASSIST AND FWW, STRENGTH IN BLE IMPROVED, GAIT STEADY. PT DENIES NAUSEA AFTER BREAKFAST. MINIMAL DIZZINESS WHEN AMBULATING. IV SITE FLUSHES WITHOUT DIFFICULTY. PT DENIES FURTHER NEEDS, CALL LIGHT IN REACH.
--- NOTE | 2021-11-20 10:02 | NUR ---
PT AMBULATING IN HALLWAY WITH PT DOING VERY WELL.
--- NOTE | 2021-11-20 11:25 | NUR ---
PT USES CALL LIGHT TO REQUEST HELP TO BATHROOM - INDEPENDENT USING FWW. BACK TO BED WITH DAUGHTER AT BEDSIDE.
[2021-11-20] MEDS ORDERED: LIPITOR40 MG PO (11:42)
[2021-11-20] MEDS ORDERED: LO-DOSE ASPIRIN81 MG PO (11:42)
[2021-11-20] MEDS ORDERED: LEVOTHYROXINE50 MCG PO (11:43)
[2021-11-20] MEDS ORDERED: METFORMIN HCL500 MG PO (11:43)
[2021-11-20] MEDS ORDERED: ONDANSETRON ODT4 MG SL (11:51)
== END 2021-11-20 12:55 | disposition home or self-care (01) | DRG 66 ==
LOC: ED 11:21 → MS 14:50
PROVIDERS: ADMIT Internal Medicine; ATTEND Internal Medicine
DX: I63.81 Other cerebral infarction due to occlusion or stenosis of small artery (principal); I63.542 Cerebral infarction due to unspecified occlusion or stenosis of left cerebellar artery; R26.89 Other abnormalities of gait and mobility; E78.5 Hyperlipidemia, unspecified; E11.9 Type 2 diabetes mellitus without complications; E03.9 Hypothyroidism, unspecified; E66.9 Obesity, unspecified; R94.6 Abnormal results of thyroid function studies; I10 Essential (primary) hypertension; I73.9 Peripheral vascular disease, unspecified; E06.3 Autoimmune thyroiditis; M19.90 Unspecified osteoarthritis, unspecified site; F17.210 Nicotine dependence, cigarettes, uncomplicated; E87.6 Hypokalemia; Z68.39 Body mass index [BMI] 39.0-39.9, adult; Z91.19 Patient's noncompliance with other medical treatment and regimen; Z86.19 Personal history of other infectious and parasitic diseases; Z98.890 Other specified postprocedural states
CPT/HCPCS: 36415; 70450; 70496; 70498; 70551; 80048; 80053; 80061; 81001; 83036; 83735; 84443; 84484; 85025; 87502; 93005; 93010; 93306; 96361; 96374; 96375; 97116; 97162; 99285-25; A9270; C9803; J0696; J0780; J1815; J2060; J2405; J7030; Q9967; U0003

== ENCOUNTER 2024-10-11 15:42 | Emergency (ER) | payer MEDICARE, OTHER ==
[~2024-10-11] VITALS: Ht 154.9 cm; Wt 90.0 kg
[~2024-10-11 15:42] MED LIST changes: +CITROMA296 ML PO; +LEVOTHYROXINE50 MCG PO; +LIPITOR40 MG PO; +LO-DOSE ASPIRIN81 MG PO; +METFORMIN HCL500 MG PO; +MIRALAX119 GM PO; +ONDANSETRON ODT4 MG SL
[2024-10-11] MEDS ORDERED: BACTRIM DS TAB1 EACH PO (18:42)
[2024-10-11 18:54] VITALS: BP 139/87
== END 2024-10-11 18:45 | disposition home or self-care (01) ==
LOC: ED 15:42
DX: L97.929 Non-pressure chronic ulcer of unspecified part of left lower leg with unspecified severity (principal); E11.9 Type 2 diabetes mellitus without complications; F17.200 Nicotine dependence, unspecified, uncomplicated; Z79.899 Other long term (current) drug therapy
CPT/HCPCS: 99282

== ENCOUNTER 2025-02-14 06:58 | Emergency (ER) | payer MEDICARE, OTHER ==
[~2025-02-14] VITALS: Ht 154.9 cm; Wt 176.3 kg
[~2025-02-14 06:58] MED LIST changes: +BACTRIM DS TAB1 EACH PO; +MIDODRINE HCL5 MG PO; +SPIRONOLACTONE25 MG PO
[2025-02-14] MEDS ORDERED: FUROSEMIDE 40 MG/4 ML VIAL IV ONE (08:00)
[2025-02-14 08:21] LABS: BASOPHILS 0.7 % (0.1-1.2); EOSINOPHILS 5.7 % (0.7-5.8); LYMPHOCYTES 31.8 % (19.3-51.7); MCH 32.0 PG (25.6-32.2); MCHC 33.6 g/dL (32.2-35.5); MCV 95.2 fL (79.4-94.8); MONOCYTES 5.9 % (4.7-12.5); NEUTROPHILS 55.5 % (34.0-71.1); RBC 3.94 M/uL (3.93-5.22)
[2025-02-14 08:44] LABS: ALT (SGPT) 12.0 U/L (14-59); AST (SGOT) 19.0 U/L (15-37); GLOMERULAR FILTRATION RATE,EST 73.0 mL/min (>60); PROTEIN, TOTAL 7.4 g/dL (6.4-8.2); UREA NITROGEN 24.0 mg/dL (7-18)
[2025-02-14 09:04] LABS: BLOOD/HGB, URINE NEGATIVE (Negative); KETONE, URINE NEGATIVE (Negative); LEUK ESTERASE, URINE SMALL (negative); NITRITE, URINE POSITIVE (negative)
[2025-02-14 09:20] LABS: BACTERIA, URINE 3+ /hpf (negative); CASTS, URINE NONE SEEN \\lpf; CRYSTALS, URINE NONE SEEN (0-1+); EPITHELIAL CELLS, URINE OCCASIONAL /lpf (0-1+); REFLEX CULTURE, URINE Yes (No)
[2025-02-14] MEDS ORDERED: CEPHALEXIN500 M1 PO (11:23)
[2025-02-14] MEDS ORDERED: LASIX40 MG PO (11:23)
[2025-02-14 11:49] VITALS: BP 137/67
--- NOTE | 2025-02-14 19:52 | EKG ---
[facility] [address] [place] [address] Signed Sinus rhythm with occasional premature ventricular complexes Otherwise normal ECG When compared with ECG of 28-DEC-2024 16:29, Sinus rhythm has replaced Junctional rhythm Confirmed by Chhaya Jansen DO ([id number]) on 02/14/2025 7:52:08 PM Electronically Signed By: CHHAYA JANSEN DO 02/14/251951 PATIENT NAME: ALFREDO WILBURN Electrocardiogram DATE OF : 48 PHYSICIAN: CHHAYA JANSEN DO REPORT #: [id number] REPORT IS CONFIDENTIAL AND NOT TO BE RELEASED WITHOUT AUTHORIZATION
== END 2025-02-14 11:50 | disposition home or self-care (01) ==
LOC: ED 06:58
PROVIDERS: Emergency Medicine
DX: I11.0 Hypertensive heart disease with heart failure (principal); I50.9 Heart failure, unspecified; N39.0 Urinary tract infection, site not specified; E11.51 Type 2 diabetes mellitus with diabetic peripheral angiopathy without gangrene; I87.2 Venous insufficiency (chronic) (peripheral); E03.9 Hypothyroidism, unspecified; F17.200 Nicotine dependence, unspecified, uncomplicated; Z86.73 Personal history of transient ischemic attack (TIA), and cerebral infarction without residual deficits; Z79.890 Hormone replacement therapy; Z79.899 Other long term (current) drug therapy
CPT/HCPCS: 36415; 71045; 80053; 81001; 83880; 84484; 85025; 93005; 93010; 96374; 99284-25; J1938

== ENCOUNTER 2025-02-17 12:39 | Emergency (ER) | payer MEDICARE, OTHER ==
[~2025-02-17] VITALS: Ht 154.9 cm; Wt 100.0 kg
[~2025-02-17 12:39] MED LIST changes: +CEPHALEXIN500 M1 PO; +LASIX40 MG PO
[2025-02-17 15:01] LABS: BASOPHILS 0.7 % (0.1-1.2); EOSINOPHILS 4.1 % (0.7-5.8); LYMPHOCYTES 39.1 % (19.3-51.7); MCH 32.1 PG (25.6-32.2); MCHC 33.4 g/dL (32.2-35.5); MCV 95.9 fL (79.4-94.8); MONOCYTES 6.1 % (4.7-12.5); NEUTROPHILS 49.3 % (34.0-71.1); RBC 3.65 M/uL (3.93-5.22)
[2025-02-17 15:16] LABS: ALT (SGPT) 13.0 U/L (14-59); AST (SGOT) 19.0 U/L (15-37); GLOMERULAR FILTRATION RATE,EST 35.0 mL/min (>60); PROTEIN, TOTAL 7.1 g/dL (6.4-8.2); UREA NITROGEN 38.0 mg/dL (7-18)
[2025-02-17] MEDS ORDERED: ZINC OXIDE/GELATIN/GELATIN 1 BANDAGE BANDAGE TOP ONE (16:45)
--- NOTE | 2025-02-17 17:06 | NUR ---
LE 1625: THIS RN INTRODUCES HERSELF TO THE PT AND THE PT'S DAUGHTER. THE PT HAS VISIBLE CELLULITIS ON THE LEFT LOWER EXTREMITY, WITH AREAS OF DEFLATED FLUID FILLED BLISTERS LATERALLY AROUND TO THE POSTERIOR ASPECT OF THE LLE. THE RLE HAS MINOR ULCERATIONS ON THE MEDIAL ASPECT. THE PT REPORTS THAT SHE SLEEPS ON A COUCH, SITTING UP A MAJORITY OF THE TIME. AND THAT ALL THE ANIMALS LIKE TO JUMP UP ON HER AND END UP SCRATCHING HER LEGS. SHE IS EDUCATED THAT SHE NEEDS TO START SLEEPING WITH HER LEGS UP TO PREVENT SWELLING IN HER LOWER EXTREMITIES, TO PROMOTE BLOOD RETURN. PT AND DAUGHTER VERBALIZE UNDERSTANDING. PT WAS DISCHARGED FROM A SNF A MONTH AGO AFTER BEING TREATED FOR CELLULITIS AND WOUND CARE - DAUGHTER REPORTS THAT SHE DID HEAL, BUT THE REDNESS HAS NEVER GONE AWAY. THIS RN DISCUSSES A PLAN OF CARE WITH THE PT AND DAUGHTER TO COME IN ON AN OUTPAITENT BASIS FOR WOUND CARE, THEY ARE AGREEABLE TO THIS. PT'S BLE ARE GENTLY CLEANSED WITH WARM, WET WASH CLOTHS. UNNA BOOTS ARE APPLIED STARTING AT THE BASE OF THE PINKY TOE, WRAPPED UP TO 2 FINGER WIDTHS BELOW THE KNEE. CAST PADDING, THEN COBAN APPLIED TO SECURE EVERYRTHING IN PLACE, STARTING AT THE BASE OF THE PINKY TOE, WRAPPED UP TO 2 FINGER WIDTHS BELOW THE KNEE. LE 1702: WOUND CONSULT IS COMPLETE. CONCEPTOR REQUESTED TO GET DOC TO SIGN AN ORDER FOR OUTPATIENT WOUND CARE. DAY SURGERY RN'S WILL CALL TO SCHEDULE APPT ONCE THEY HAVE THE ORDER.
[2025-02-17 17:28] VITALS: BP 119/72
== END 2025-02-17 17:28 | disposition home or self-care (01) ==
LOC: ED 12:39
PROVIDERS: Emergency Medicine
DX: S81.802A Unspecified open wound, left lower leg, initial encounter (principal); S81.801A Unspecified open wound, right lower leg, initial encounter; E11.9 Type 2 diabetes mellitus without complications; E03.9 Hypothyroidism, unspecified; F17.200 Nicotine dependence, unspecified, uncomplicated; X58.XXXA Exposure to other specified factors, initial encounter; Z79.890 Hormone replacement therapy; Z79.899 Other long term (current) drug therapy
CPT/HCPCS: 36415; 80053; 85025; 99283

== ENCOUNTER 2025-03-16 11:44 | Emergency (ER) | payer MEDICARE, OTHER ==
[~2025-03-16] VITALS: Ht 154.9 cm; Wt 86.2 kg
--- OUTSIDE RECORDS SUMMARY | ~2025-03-16 | XMS | Continuity of Care Document ---
Demographics + + + | Address | [address] | | | [place] [address] | + + + | Preferred Language | Unknown | + + + | Marital Status | | + + + | Anabaptism Affiliation | Unknown | + + + | Race | or | + + + | Ethnic Group | Not or | + + + Author + + + | Author | [facility] | + + + | Organization | [facility] | + + + | Address | [address] | | | [place] [address] | + + + | Phone | | + + + Care Team Providers + + + + | Care Show Operations Supervisor Name | Role | Phone | + + + + Unavailable | Unavailable | + + + + Unavailable | Unavailable | + + + + Allergies and Intolerances + + + + + + | date | description | facility | reaction | severity | + + + + + + | 2025-02-14 | UNK | [facility] - | (no reaction) | (no severity) | | 00:00 | | [facility] | | | + + + + + + Encounters No information. Functional Status No information. Immunizations No information. Medications + + + + | date | description | facility | + + + + | (no date) | TRIAMCINOLONE 0.1% | [facility] | | | | [facility] | + + + + | 2025-02-14 00:00 | FUROSEMIDE | [facility] | | | | [facility] | + + + + | (no date) | THYROID,PORK | [facility] | | | | [facility] | + + + + | 2025-01-01 00:00 | SPIRONOLACTONE | [facility] | | | | [facility] | + + + + | (no date) | LISINOPRIL | [facility] | [facility] | + + + + | (no date) | CLINDAMYCIN HCL | [facility] | | | | [facility] | + + + + | (no date) | OMEGA-3/DHA/EPA/FISH OIL | [facility] | | | | [facility] | + + + + | (no date) | methylPREDNISolone | [facility] | | | | [facility] | + + + + | (no date) | METOPROLOL SUCCINATE | [facility] | | | | [facility] | + + + + | 2025-01-01 00:00 | LEVOTHYROXINE SODIUM | [facility] | | | | [facility] | + + + + | 2025-01-01 00:00 | MIDODRINE HCL | [facility] | | | | [facility] | + + + + Problems + + + + | date | description | facility | + + + + | 2024-12-28 00:00 | Congestive heart failure | [facility] | | | | [facility] | + + + + | 2025-02-14 00:00 | Acute on chronic | [facility] | | | congestive heart failure | [facility] | + + + + | 2025-02-17 00:00 | Chronic wound of extremity | [facility] | | | | [facility] | + + + + Procedures No information. Results/Labs +--------+--------+ +---------+--------+---------+ | test | date | facility | value | unit | notes | +--------+--------+ +---------+--------+---------+ + + | Result panel 1 | + + + + + +---------+ + + | Troponin I | 2025-02-14 | | 101.4 | (missing) | (missing) | | SerPl | 08:15:07 | [facility] | | | | | [facility] | | | | + + + +---------+ + + + + | Result panel 2 | + + + + + + + + + | Color Ur | 2025-02-14 | | YELLOW | (missing) | (missing) | | Auto | 08:55:07 | [facility] | | | | + + + + + + + + + | Result panel 3 | + + + + + +---------+ + + | Character | 2025-02-14 | | CLEAR | (missing) | (missing) | | Ur | 08:55:07 | [facility] | | | | + + + +---------+ + + + + | Result panel 4 | + + + + + + + + + | Glucose Ur | 2025-02-14 | | NEGATIVE | (missing) | (missing) | | Ql Strip | 08:55:07 | [facility] | | | | + + + + + + + + + | Result panel 5 | + + + + + + + + + | Petermaricelangelic Ur | 2025-02-14 | | NEGATIVE | (missing) | (missing) | | Ql Strip | 08:55:07 | [facility] | | | | + + + + + + + + + | Result panel 6 | + + + + + + + + + | Ketonemeredith Ur | 2025-02-14 | | NEGATIVE | (missing) | (missing) | | Ql Strip | 08:55:07 | [facility] | | | | + + + + + + + + + | Result panel 7 | + + + + + +---------+ + + | Sp Jluis Ur | 2025-02-14 | | 1.010 | (missing) | (missing) | | Strip | 08:55:07 | [facility] | | | | + + + +---------+ + + + + | Result panel 8 | + + + + + + + + + | Hgb Ur Ql | 2025-02-14 | | NEGATIVE | (missing) | (missing) | | Strip | 08:55:07 | [facility] | | | | + + + + + + + + + | Result panel 9 | + + + + + +-------+ + + | pH Ur Strip | 2025-02-14 | | 6.0 | (missing) | (missing) | | | 08:55:07 | [facility] | | | | + + + +-------+ + + + + | Result panel 10 | + + + + + + + + + | Prot Ur | 2025-02-14 | | NEGATIVE | (missing) | (missing) | | Strip-Jose | 08:55:07 | [facility] | | | | + + + + + + + + + | Result panel 11 | + + + + + + + + + | | 2025-02-14 | | NORMAL | (missing) | (missing) | | Urobilinogen | 08:55:07 | [facility] | | | | | Ur | | - | | | | | [facility] | | | | + + + + + + + + + | Result panel 12 | + + + + + + + + + | Nitrite Ur | 2025-02-14 | | POSITIVE | (missing) | (missing) | | Ql Strip | 08:55:07 | [facility] | | | | + + + + + + + + + | Result panel 13 | + + + + + +---------+ + + | Leukocyte | 2025-02-14 | | SMALL | (missing) | (missing) | | esterase Ur | 08:55:07 | [facility] | | | | | Ql Strip [facility] | | | | + + + +---------+ + + + + | Result panel 14 | + + + + + +-------+ + + | RBC #/area | 2025-02-14 | | 0-1 | (missing) | (missing) | | UrnS HPF | 08:55:07 | [facility] | | | | + + + +-------+ + + + + | Result panel 15 | + + + + + +-------+ + + | WBC #/area | 2025-02-14 | | 2-3 | (missing) | (missing) | | UrnS HPF | 08:55:07 | [facility] | | | | + + + +-------+ + + + + | Result panel 16 | + + + + + + + + + | Epi Cells | 2025-02-14 | | OCCASIONAL | (missing) | (missing) | | #/area UrnS | 08:55:07 | [facility] | | | | | HPF | [facility] | | | | + + + + + + + + + | Result panel 17 | + + + + + + + + + | Crystals | 2025-02-14 | | NONE SEEN | (missing) | (missing) | | UrnS Micro | 08:55:07 | [facility] | | | | + + + + + + + + + | Result panel 18 | + + + + + +------+ + + | Bacteria | 2025-02-14 | | 3+ | (missing) | (missing) | | #/area UrnS | 08:55:07 | [facility] | | | | | HPF [facility] | | | | + + + +------+ + + + + | Result panel 19 | + + + + + + + + + | Casts | 2025-02-14 | | NONE SEEN | (missing) | (missing) | | #/area UrnS | 08:55:07 | [facility] | | | | | LPF | | - | | | | | | | [facility] | | | | + + + + + + + + + | Result panel 20 | + + + + + +-------+ + + | Bacteria Ur | 2025-02-14 | | Yes | (missing) | (missing) | | Cult | 08:55:07 | [facility] | | | | + + + +-------+ + + + + | Result panel 21 | + + + + + + + + + | Urn Spec | 2025-02-14 | | CLEAN CATCH | (missing) | (missing) | | Collect Meth | 08:55:07 | [facility] | | | | | Ur | [facility] | | | | + + + + + + + + + | Result panel 22 | + + + + + + + + + | Bacteria Ur | 2025-02-14 | | GRAM | (missing) | (missing) | | Cult | 08:55:07 | [facility] | NEGATIVE | | | | | [facility] | | | | + + + + + + + + + | Result panel 23 | + + + + + +--------+ + + | WBC # Bld | 2025-02-17 | | 6.06 | (missing) | (missing) | | Auto | 14:56:07 | [facility] | | | | + + + +--------+ + + + + | Result panel 24 | + + + + + +--------+ + + | Lymphocytes | 2025-02-17 | | 39.1 | (missing) | (missing) | | NFr Bld | 14:56:07 | [facility] | | | | | Auto | [facility] | | | | + + + +--------+ + + + + | Result panel 25 | + + + + + +-------+ + + | Monocytes | 2025-02-17 | | 6.1 | (missing) | (missing) | | NFr Bld Auto | 14:56:07 | [facility] | | | | + + + +-------+ + + + + | Result panel 26 | + + + + + +-------+ + + | Eosinophil | 2025-02-17 | | 4.1 | (missing) | (missing) | | NFr Bld Auto | 14:56:07 | [facility] | | | | + + + +-------+ + + + + | Result panel 27 | + + + + + +-------+ + + | Basophils | 2025-02-17 | | 0.7 | (missing) | (missing) | | NFr Bld Auto | 14:56:07 | [facility] | | | | + + + +-------+ + + + + | Result panel 28 | + + + + + +------+---------+ + | Glucose | 2025-02-17 | | 98 | mg/dL | (missing) | | Robin | 14:56:07 | [facility] | | | | + + + +------+---------+ + + + | Result panel 29 | + + + + + +------+---------+ + | BUN | 2025-02-17 | | 38 | mg/dL | (missing) | | Robin | 14:56:07 | [facility] | | | | + + + +------+---------+ + + + | Result panel 30 | + + + + + +--------+---------+ + | Creat | 2025-02-17 | | 1.55 | mg/dL | (missing) | | SerPl-mCnc | 14:56:07 | [facility] | | | | | | | - [facility] | | | [facility] | | | | + + + +--------+---------+ + + + | Result panel 31 | + + + + + +------+ + + | eGFRcr | 2025-02-17 | | 35 | (missing) | (missing) | | SerPlBld | 14:56:07 | [facility] | | | | | CKD-EPI 2020 | [facility] | | | | + + + +------+ + + + + | Result panel 32 | + + + + + +---------+ + + | BUN/Creat | 2025-02-17 | | 24.51 | (missing) | (missing) | | SerPl | 14:56:07 | [facility] | | | | + + + +---------+ + + + + | Result panel 33 | + + + + + +-------+ + + | Sodium | 2025-02-17 | | 139 | (missing) | (missing) | | Ser[facility] | 14:56:07 | [facility] | | | | [facility] | | | | + + + +-------+ + + + + | Result panel 34 | + + + + + +--------+ + + | RBC # Bld | 2025-02-17 | | 3.65 | (missing) | (missing) | | Auto | 14:56:07 | [facility] | | | | + + + +--------+ + + + + | Result panel 35 | + + + + + +-------+ + + | Potassium | 2025-02-17 | | 4.0 | (missing) | (missing) | | SerPl-sCnc | 14:56:07 | [facility] | | | | + + + +-------+ + + + + | Result panel 36 | + + + + + +-------+ + + | Chloride | 2025-02-17 | | 102 | (missing) | (missing) | | SerPl-sCnc | 14:56:07 | [facility] | | | | + + + +-------+ + + + + | Result panel 37 | + + + + + +------+ + + | CO2 | 2025-02-17 | | 31 | (missing) | (missing) | | SerPl-sCnc | 14:56:07 | [facility] | | | [facility] | | | | + + + +------+ + + + + | Result panel 38 | + + + + + +--------+ + + | Anion Gap | 2025-02-17 | | 10.0 | (missing) | (missing) | | SerPl | 14:56:07 | [facility] | | | | | Calculated.4 | [facility] | | | | + + + +--------+ + + + + | Result panel 39 | + + + + + +-------+---------+ + | Calcium | 2025-02-17 | | 8.7 | mg/dL | (missing) | | Toño-Jose | 14:56:07 | [facility] | | | | [facility] | | | | + + + +-------+---------+ + + + | Result panel 40 | + + + + + +-------+ + + | Prot | 2025-02-17 | | 7.1 | (missing) | (missing) | | Toño-Jose | 14:56:07 | [facility] | | | | + + + +-------+ + + + + | Result panel 41 | + + + + + +-------+ + + | Albumin | 2025-02-17 | | 3.4 | (missing) | (missing) | | SerPl-Jose | 14:56:07 | [facility] | | | | + + + +-------+ + + + + | Result panel 42 | + + + + + +-------+ + + | Globulin | 2025-02-17 | | 3.7 | (missing) | (missing) | | Ser-mCnc | 14:56:07 | [facility] | | | | + + + +-------+ + + + + | Result panel 43 | + + + + + +--------+ + + | | 2025-02-17 | | 0.92 | (missing) | (missing) | | Albumin/Glob | 14:56:07 | [facility] | | | | | SerPl | [facility] | | | | + + + +--------+ + + + + | Result panel 44 | + + + + + +-------+---------+ + | Bilirub | 2025-02-17 | | 0.5 | mg/dL | (missing) | | SerPl-mCnc | 14:56:07 | [facility] | | | | + + + +-------+---------+ + + + | Result panel 45 | + + + + + +--------+ + + | Hgb | 2025-02-17 | | 11.7 | (missing) | (missing) | | Bld-mCnc | 14:56:07 | [facility] | | | | + + + +--------+ + + + + | Result panel 46 | + + + + + +------+ + + | AST | 2025-02-17 | | 19 | (missing) | (missing) | | SerPl-cCn | 14:56:07 | [facility] | | | | + + + +------+ + + + + | Result panel 47 | + + + + + +------+ + + | ALT | 2025-02-17 | | 13 | (missing) | (missing) | | SerPl-cCn | 14:56:07 | [facility] | | | | + + + +------+ + + + + | Result panel 48 | + + + + + +-------+ + + | ALP | 2025-02-17 | | 105 | (missing) | (missing) | | SerPl-cCnc | 14:56:07 | [facility] | | | | + + + +-------+ + + + + | Result panel 49 | + + + + + +--------+ + + | Hct VFr.DF | 2025-02-17 | | 35.0 | (missing) | (missing) | | Bld Auto | 14:56:07 | [facility] | | | | + + + +--------+ + + + + | Result panel 50 | + + + + + +--------+ + + | RBC Auto | 2025-02-17 | | 95.9 | (missing) | (missing) | | | 14:56:07 | [facility] | | | | + + + +--------+ + + + + | Result panel 51 | + + + + + +--------+ + + | MCH RBC Qn | 2025-02-17 | | 32.1 | (missing) | (missing) | | Auto | 14:56:07 | [facility] | | | | + + + +--------+ + + + + | Result panel 52 | + + + + + +--------+ + + | MCHC RBC | 2025-02-17 | | 33.4 | (missing) | (missing) | | Auto-EntMCnc | 14:56:07 | [facility] | | | | + + + +--------+ + + + + | Result panel 53 | + + + + + +-------+ + + | Platelet # | 2025-02-17 | | 258 | (missing) | (missing) | | Bld Auto | 14:56:07 | [facility] | | | | + + + +-------+ + + + + | Result panel 54 | + + + + + +--------+ + + | Neutrophils | 2025-02-17 | | 49.3 | (missing) | (missing) | | NFr Bld | 14:56:07 | [facility] | | | | | Auto | [facility] | | | | + + + +--------+ + + Social History +--------+ + + | date | description | facility | +--------+ + + Vital Signs + + + +---------+ | date | measurement | value | units | + + + +---------+ | 2025-02-14 00:00 | BMI | 73.4 | kg/m2 | + + + +---------+ | 2025-02-14 00:00 | BP_diastolic | 67 | mmHg | + + + +---------+ | 2025-02-14 00:00 | BP_systolic | 137 | mmHg | + + + +---------+ | 2025-02-14 00:00 | heart_rate | 85 | /min | + + + +---------+ | 2025-02-14 00:00 | height_metric | 154.94 | cm | + + + +---------+ | 2025-02-14 00:00 | height_standard | 61 | in | + + + +---------+ | 2025-02-14 00:00 | o2_saturation | 98 | % | + + + +---------+ | 2025-02-14 00:00 | respiration_rate | 16 | /min | + + + +---------+ | 2025-02-14 00:00 | | 98 | F | | | temperature_standar | | | | | d | | | + + + +---------+ | 2025-02-14 00:00 | weight_metric | 176.3 | kg | + + + +---------+ | 2025-02-14 00:00 | weight_standard | 388.675 | lb | + + + +---------+ | 2025-02-17 00:00 | BMI | 41.7 | kg/m2 | + + + +---------+ | 2025-02-17 00:00 | BP_diastolic | 72 | mmHg | + + + +---------+ | 2025-02-17 00:00 | BP_systolic | 119 | mmHg | + + + +---------+ | 2025-02-17 00:00 | heart_rate | 69 | /min | + + + +---------+ | 2025-02-17 00:00 | height_metric | 154.94 | cm | + + + +---------+ | 2025-02-17 00:00 | height_standard | 61 | in | + + + +---------+ | 2025-02-17 00:00 | o2_saturation | 93 | % | + + + +---------+ | 2025-02-17 00:00 | respiration_rate | 18 | /min | + + + +---------+ | 2025-02-17 00:00 | | 97.8 | F | | | temperature_standar | | | | | d | | | + + + +---------+ | 2025-02-17 00:00 | weight_metric | 100 | kg | + + + +---------+ | 2025-02-17 00:00 | weight_standard | 220.462 | lb | + + + +---------+"
[2025-03-16 13:16] VITALS: BP 128/86
== END 2025-03-16 12:55 | disposition home or self-care (01) ==
LOC: ED 11:44
DX: Z48.00 Encounter for change or removal of nonsurgical wound dressing (principal); E11.9 Type 2 diabetes mellitus without complications; I10 Essential (primary) hypertension; E03.9 Hypothyroidism, unspecified; F17.200 Nicotine dependence, unspecified, uncomplicated
CPT/HCPCS: 99282

== ENCOUNTER 2025-04-18 09:40 | Emergency (ER) | payer MEDICARE, OTHER ==
[~2025-04-18] VITALS: Ht 154.9 cm; Wt 86.2 kg
--- OUTSIDE RECORDS SUMMARY | ~2025-04-18 | XMS | Continuity of Care Document ---
Demographics + + + | Address | [address] | | | [place] [address] | + + + | Preferred Language | Unknown | + + + | Marital Status | | + + + | Confucianist Affiliation | Unknown | + + + | Race | or | + + + | Ethnic Group | Not or | + + + Author + + + | Author | [facility] | + + + | Organization | [facility] | + + + | Address | [address] | | | [place] [address] | + + + | Phone | | + + + Care Team Providers + + + + | Care Storage Administrator Name | Role | Phone | + [...] + + + + + + | 2025-03-16 | UNK | [facility] - | (no [...] | (no date) | TRIAMCINOLONE 0.1% | [facility] | | | | [facility] | + + + + | (no date) | TRIAMCINOLONE 0.1% | [facility] | | | | [facility] | + + + + | 2025-02-14 00:00 | FUROSEMIDE | [facility] | | | | [facility] | + + + + | (no date) | THYROID,PORK | [facility] | | | | [facility] | + + + + | (no date) | THYROID,PORK | [facility] | | | | [facility] | + + + + | (no date) | LISINOPRIL | [facility] | | | | [facility] | + + + + | (no date) | LISINOPRIL | [facility] | | | | [facility] | + + + + | (no date) | CLINDAMYCIN HCL | [facility] | | | | [facility] | + + + + | (no date) | CLINDAMYCIN HCL | [facility] | | | | [facility] | + + + + | (no date) | OMEGA-3/DHA/EPA/FISH OIL | [facility] | | | | [facility] | + + + + | (no date) | OMEGA-3/DHA/EPA/FISH OIL | [facility] | | | | [facility] | + + + + | (no date) | methylPREDNISolone | [facility] | | | | [facility] | + + + + | (no date) | methylPREDNISolone | [facility] | | | | [facility] | + + + + | (no date) | METOPROLOL SUCCINATE | [facility] | | | | [facility] | + + + + | (no date) | METOPROLOL SUCCINATE | [facility] | | | | [facility] | + + + + Problems + + + + | date | description | facility | + + + + | 2025-02-14 00:00 | Acute on chronic | [facility] | | | congestive heart failure | [facility] | + + + + | 2025-02-14 00:00 | Acute on chronic | [facility] | | | congestive heart failure | [facility] | + + + + | 2025-02-17 00:00 | Chronic wound of extremity | [facility] | | | | [facility] | + + + + | 2025-02-17 00:00 | Chronic wound of extremity | [facility] | | | | [facility] | + + + + | 2025-03-16 00:00 | Encounter for wound | [facility] | | | re-check | [facility] | + + + + Procedures No [...] 2 | + + + + + +---------+ [...] 3 | + + + + + + [...] [facility] | | | | + + + + + + + + + | Result panel 5 | + + + + + +-------+ [...] 6 | + + + + + +-------+ [...] 7 | + + + + + + [...] SEEN | (missing) | (missing) | | [facility] | 08:55:07 | [facility] | [facility] | | | | + + + + + + + + + | Result panel 9 | + + + + + +------+ [...] | | | [facility] | | | | + + + + + + + + + | Result panel 11 | + + + + + +-------+ [...] 13 | + + + + + + [...] 14 | + + + + + + [...] 15 | + + + + + +---------+ [...] 16 | + + + + + +-------+ [...] 17 | + + + + + +-------+ + + | WBC #/area | 2025-02-14 | | 2-3 | (missing) | (missing) | | [facility] | 08:55:07 | [facility] | | | | + + + +-------+ + + + + | Result panel 18 | + + + + + + [...] SEEN | (missing) | (missing) | | [facility] | 08:55:07 | [facility] | | | | + + + + + + + + + | Result panel 20 | + + + + + +------+ [...] | | | [facility] | | | | + + + + + + + + + | Result panel 22 | + + + + + +-------+ [...] 23 | + + + + + +---------+ [...] 24 | + + + + + + [...] 25 | + + + + + + + + + | Bacteria Ur | 2025-02-14 | | ESCHERICHIA | (missing) | (missing) | | Cult | 08:55:07 | [facility] | COLI | [facility] | | | | + + + + + + + + + | Result panel 26 | + + + + + + + + + | Bacteria Ur | 2025-02-14 | | KLEBSIELLA | (missing) | (missing) | | Cult | 08:55:07 | [facility] | PNEUMONIAE | | | | [facility] | | | | + + + + + + + + + | Result panel 27 | + + + + + + [...] 28 | + + + + + + + + + | Bilirub Ur | 2025-02-14 | | NEGATIVE | (missing) | (missing) | | Ql Strip | 08:55:07 | [facility] | | | | + + + + + + + + + | Result panel 29 | + + + + + + + + + | Salo Ross | 2025-02-14 | | NEGATIVE | (missing) | (missing) | | Ql Strip | 08:55:07 | [facility] | | | | + + + + + + + + + | Result panel 30 | + + + + + +---------+ + + | Mario Ross | 2025-02-14 | | 1.010 | (missing) | (missing) | | Strip | 08:55:07 | [facility] | | | | + + + +---------+ + + + + | Result panel 31 | + + + + + + [...] 32 | + + + + + +-------+ [...] 33 | + + + + + + [...] 34 | + + + + + +---------+ [...] 35 | + + + + + + [...] 36 | + + + + + + [...] 37 | + + + + + + + + + | Angela Ross | 2025-02-14 | | NEGATIVE | (missing) [...] 38 | + + + + + + + + + | Ketones Ur | 2025-02-14 | | NEGATIVE | [...] 39 | + + + + + +---------+ + + | Sp Gr Ur | 2025-02-14 | | 1.010 | (missing) | (missing) | | Strip | 08:55:07 | [facility] | | | | + + + +---------+ + + + + | Result panel 40 | + + + + + + [...] 42 | + + + + + + [...] 43 | + + + + + + + + + | | 2025-02-14 | | NORMAL | (missing) | (missing) | | Urobilinogen | 08:55:07 | [facility] | | | | | Ur | [facility] | | | | + + + + + + + + + | Result panel 44 | + + + + + + [...] + + + + | Result panel 45 | + + + + + +---------+ [...] 46 | + + + + + +--------+ [...] 47 | + + + + + +--------+ [...] 48 | + + + + + +--------+ [...] + + + + | Result panel 55 | + + + + + +--------+ [...] + + + + | Result panel 56 | + + + + + +-------+ [...] + + + + | Result panel 57 | + + + + + +-------+ [...] + + + + | Result panel 58 | + + + + + +-------+ [...] + + + + | Result panel 59 | + + + + + +------+---------+ + | Glucose | 2025-02-17 | | 98 | mg/dL | (missing) | | [facility] | 14:56:07 | [facility] | | | | + + + +------+---------+ + + + | Result panel 60 | + + + + + +------+---------+ + | BUN | 2025-02-17 | | 38 | mg/dL | (missing) | | [facility] | 14:56:07 | [facility] | | | | + + + +------+---------+ + + + | Result panel 61 | + + + + + +--------+---------+ + | Creat | 2025-02-17 | | 1.55 | mg/dL | (missing) | | [facility] | 14:56:07 | [facility] | | | | + + + +--------+---------+ + + + | Result panel 62 | + + + + + +------+ [...] + + + + | Result panel 63 | + + + + + +---------+ [...] + + + + | Result panel 64 | + + + + + +-------+ + + | Sodium | 2025-02-17 | | 139 | (missing) | (missing) | | [facility] | 14:56:07 | [facility] | | | | + + + +-------+ + + + + | Result panel 65 | + + + + + +-------+ + + | Potassium | 2025-02-17 | | 4.0 | (missing) | (missing) | | [facility] | 14:56:07 | [facility] | | | | + + + +-------+ + + + + | Result panel 66 | + + + + + +-------+ [...] + + + + | Result panel 67 | + + + + + +------+ [...] + + + + | Result panel 68 | + + + + + +--------+ [...] + + + + | Result panel 69 | + + + + + +-------+---------+ + | Calcium | 2025-02-17 | | 8.7 | mg/dL | (missing) | | [facility] | 14:56:07 | [facility] | | | | + + + +-------+---------+ + + + | Result panel 70 | + + + + + +-------+ + + | Prot | 2025-02-17 | | 7.1 | (missing) | (missing) | | [facility] | 14:56:07 | [facility] | | | | + + + +-------+ + + + + | Result panel 71 | + + + + + +-------+ + + | Albumin | 2025-02-17 | | 3.4 | (missing) | (missing) | | SerPl-nc | 14:56:07 | [facility] | | | | + + + +-------+ + + + + | Result panel 72 | + + + + + +-------+ + + | Globulin | 2025-02-17 | | 3.7 | (missing) | (missing) | | Ser-nc | 14:56:07 | [facility] | | | | + + + +-------+ + + + + | Result panel 73 | + + + + + +--------+ [...] + + + + | Result panel 74 | + + + + + +-------+---------+ [...] +-------+---------+ + + + | Result panel 75 | + + + + + +------+ + + | AST | 2025-02-17 | | 19 | (missing) | (missing) | | [facility] | 14:56:07 | [facility] | | | | + + + +------+ + + + + | Result panel 76 | + + + + + +------+ + + | ALT | 2025-02-17 | | 13 | (missing) | (missing) | | [facility] | 14:56:07 | [facility] | | | | + + + +------+ + + + + | Result panel 77 | + + + + + +-------+ [...] + + + + | Result panel 78 | + + + + + +--------+ [...] + + + + | Result panel 79 | + + + + + +--------+ [...] + + + + | Result panel 80 | + + + + + +--------+ [...] + + + + | Result panel 81 | + + + + + +--------+ [...] + + + + | Result panel 82 | + + + + + +--------+ [...] + + + + | Result panel 83 | + + + + + +--------+ [...] + + + + | Result panel 84 | + + + + + +--------+ [...] + + + + | Result panel 85 | + + + + + +-------+ [...] + + + + | Result panel 86 | + + + + + +--------+ + + | Neutrophils | 2025-02-17 | | 49.3 | (missing) | (missing) | | NFr Bld | 14:56:07 | [facility] | | [facility] | | | | + + + +--------+ + + + + | Result panel 87 | + + + + + +--------+ [...] + + + + | Result panel 88 | + + + + + +-------+ [...] + + + + | Result panel 89 | + + + + + +-------+ [...] + + + + | Result panel 90 | + + + + + +-------+ [...] + + + + | Result panel 91 | + + + + + +------+---------+ + | Glucose | 2025-02-17 | | 98 | mg/dL | (missing) | | [facility] | 14:56:07 | [facility] | | | | + + + +------+---------+ + + + | Result panel 92 | + + + + + +------+---------+ + | BUN | 2025-02-17 | | 38 | mg/dL | (missing) | | [facility] | 14:56:07 | [facility] | | | | + + + +------+---------+ + + + | Result panel 93 | + + + + + +--------+---------+ [...] +--------+---------+ + + + | Result panel 94 | + + + + + +------+ [...] + + + + | Result panel 95 | + + + + + +---------+ [...] + + + + | Result panel 96 | + + + + + +-------+ + + | Sodium | 2025-02-17 | | 139 | (missing) | (missing) | | SerPl-s[facility]n | 14:56:07 | [facility] | | | | + + + +-------+ + + + + | Result panel 97 | + + + + + +-------+ + + | Potassium | 2025-02-17 | | 4.0 | (missing) | (missing) | | [facility] | 14:56:07 | [facility] | | | | + + + +-------+ + + + + | Result panel 98 | + + + + + +-------+ [...] + + + + | Result panel 99 | + + + + + +------+ [...] + + + + | Result panel 100 | + + + + + +--------+ [...] + + + + | Result panel 101 | + + + + + +-------+---------+ + | Calcium | 2025-02-17 | | 8.7 | mg/dL | (missing) | | [facility] | 14:56:07 | [facility] | | | | + + + +-------+---------+ + + + | Result panel 102 | + + + + + +-------+ + + | Prot | 2025-02-17 | | 7.1 | (missing) | (missing) | | [facility] | 14:56:07 | [facility] | | | | + + + +-------+ + + + + | Result panel 103 | + + + + + +-------+ [...] + + + + | Result panel 104 | + + + + + +-------+ + + | Globulin | 2025-02-17 | | 3.7 | (missing) | (missing) | | [facility] | 14:56:07 | [facility] | | | | + + + +-------+ + + + + | Result panel 105 | + + + + + +--------+ [...] + + + + | Result panel 106 | + + + + + +-------+---------+ [...] +-------+---------+ + + + | Result panel 107 | + + + + + +------+ + + | AST | 2025-02-17 | | 19 | (missing) | (missing) | | [facility] | 14:56:07 | [facility] | | | | + + + +------+ + + + + | Result panel 108 | + + + + + +------+ + + | ALT | 2025-02-17 | | 13 | (missing) | (missing) | | [facility] | 14:56:07 | [facility] | | | | + + + +------+ + + + + | Result panel 109 | + + + + + +-------+ + + | ALP | 2025-02-17 | | 105 | (missing) | (missing) | | [facility] | 14:56:07 | [facility] | | | | + + + +-------+ + + Social History +--------+ + + [...] 220.462 | lb | + + + +---------+ | 2025-03-16 00:00 | BMI | 35.9 | kg/m2 | + + + +---------+ | 2025-03-16 00:00 | BP_diastolic | 78 | mmHg | + + + +---------+ | 2025-03-16 00:00 | BP_systolic | 139 | mmHg | + + + +---------+ | 2025-03-16 00:00 | heart_rate | 80 | /min | + + + +---------+ | 2025-03-16 00:00 | height_metric | 154.94 | cm | + + + +---------+ | 2025-03-16 00:00 | height_standard | 61 | in | + + + +---------+ | 2025-03-16 00:00 | o2_saturation | 98 | % | + + + +---------+ | 2025-03-16 00:00 | respiration_rate | 17 | /min | + + + +---------+ | 2025-03-16 00:00 | | 98.4 | F | | | temperature_standar | | | | | d | | | + + + +---------+ | 2025-03-16 00:00 | weight_metric | 86.2 | kg | + + + +---------+ | 2025-03-16 00:00 | weight_standard | 190.037 | lb | + + + +---------+"
[2025-04-18] MEDS ORDERED: ZINC OXIDE/GELATIN/GELATIN 1 BANDAGE BANDAGE TOP ONE (12:00)
[2025-04-18 12:07] VITALS: BP 144/77
[2025-04-18] MEDS ORDERED: LASIX20 MG PO (12:24)
[2025-04-18] MEDS ORDERED: POTASSIUM CHLO20 ME2 PO (12:24)
== END 2025-04-18 12:40 | disposition home or self-care (01) ==
LOC: ED 09:40
DX: I83.028 Varicose veins of left lower extremity with ulcer other part of lower leg (principal); I83.018 Varicose veins of right lower extremity with ulcer other part of lower leg; R60.0 Localized edema; I10 Essential (primary) hypertension; E11.9 Type 2 diabetes mellitus without complications; E03.9 Hypothyroidism, unspecified; F17.200 Nicotine dependence, unspecified, uncomplicated
CPT/HCPCS: 99283